=== PATIENT | female | born 1935 | race Caucasian/White ===

== ENCOUNTER → 2016-06-16 | Outpatient (CLI) | payer OTHER ==
[~2016-06-16] MED LIST: CHOL100010 PO; CHOL2000 PO; CLOP1TAB15 PO; CYAN100020 PO; CZR25 PO; FRS/40 PO; FURO80TA63 PO; GABA-112 PO; METO1TAB69 PO; METO50TA7 PO; SIMV20TA2 PO; SPRN100 PO; TPRSR/100 PO; XRL15 PO
[2016-06-16 10:28] LABS: BLOOD UREA NITROGEN 25 mg/dl (7-18); BUN/CREATININE RATIO 20.6 (10-20); CALCIUM 9.8 mg/dl (8.5-10.1); CARBON DIOXIDE 27 mmol/L (21-32); CHLORIDE 105 mmol/L (98-107); GLUCOSE 85 mg/dl (70-99); POTASSIUM 3.9 mmol/L (3.5-5.1); SODIUM 142 mmol/L (136-145)
== END | disposition home or self-care (01) ==
LOC: C.LAB1850 09:15
PROVIDERS: ATTEND Internal Medicine Cardiovascular Disease
DX: I50.9 Heart failure, unspecified (principal)

== ENCOUNTER → 2016-11-09 | Outpatient (CLI) | payer OTHER ==
[2016-11-09 15:43] LABS: BASO % 0.9 %; BASO ABS # 0.06 K/uL (0-0.2); COMPLETE YES; EOS % 1.4 %; HEMATOCRIT 42.2 % (37-47); IG% 0.2 %; LYMPH % 26.3 %; LYMPH ABS # 1.72 K/uL (1.2-3.4); MEAN CELL VOLUME 88.5 fL (80-100); MEAN CORPUSCULAR HEMOGLOBIN 27.9 pg (25-34); MEAN CORPUSCULAR HGB CONC 31.5 g/dl (32-36); MEAN PLATELET VOLUME 9.6 fL (7.4-10.4); NEUT % 62.2 %; PLATELET COUNT 238 K/uL (130-400); RED BLOOD COUNT 4.77 M/uL (4.2-5.4); WHITE BLOOD COUNT 6.55 K/uL (4.8-10.8)
[2016-11-09 16:10] LABS: ALT/SGPT 21 U/L (12-78); BLOOD UREA NITROGEN 28 mg/dl (7-18); BUN/CREATININE RATIO 19.6 (10-20); CALCIUM 9.8 mg/dl (8.5-10.1); CARBON DIOXIDE 27 mmol/L (21-32); CHLORIDE 103 mmol/L (98-107); GLUCOSE 87 mg/dl (70-99); MAGNESIUM 2.4 mg/dl (1.8-2.4); POTASSIUM 3.9 mmol/L (3.5-5.1); SODIUM 140 mmol/L (136-145)
[2016-11-09 16:21] LABS: ALB/GLOB RATIO 1.2 (0.9-2); ALKALINE PHOSPHATASE 72 U/L (45-117); AST/SGOT 22 U/L (15-37); FERRITIN 83.4 ng/ml (8.0-388.0)
--- NOTE | 2016-11-23 08:55 | CODING QUERY MEDICAL NECESSITY ---
CQSUPPORTING DIAGNOSIS NEEDED A supporting diagnosis is required for the test/procedure performed on this patient in order for us to be reimbursed by the patient's insurance. Please provide a supporting diagnosis for the following test/procedure listed below next to the test name along with your signature. *If there is no additional diagnosis for this patient that would support the following test/procedure please document that below next to the test/procedure. Test(s)/Procedure(s) that require a supporting diagnosis: DOS 11/09/16 VITAMIN B12 TEST Provider Signature: Date: Thank you Mariaa Haq Health Information Management Once completed, please kindly fax back to [phone] For questions please call [phone]
== END | disposition home or self-care (01) ==
LOC: C.LAB1850 14:52
PROVIDERS: ATTEND Nurse Practitioner Family
DX: I25.10 Atherosclerotic heart disease of native coronary artery without angina pectoris (principal); I12.9 Hypertensive chronic kidney disease with stage 1 through stage 4 chronic kidney disease, or unspecified chronic kidney disease; I50.9 Heart failure, unspecified; N18.9 Chronic kidney disease, unspecified; R53.83 Other fatigue

== ENCOUNTER 2016-12-15 14:39 | Inpatient (IN) | payer OTHER ==
[~2016-12-15] VITALS: Ht 165.1 cm; Wt 56.4 kg
[~2016-12-15 14:39] MED LIST changes: -CHOL2000 PO; -CLOP1TAB15 PO; -CZR25 PO; -FURO80TA63 PO; -GABA-112 PO; -METO1TAB69 PO; -METO50TA7 PO; -TPRSR/100 PO
[2016-12-15] MEDS ORDERED: METO50TA7 PO (15:05)
[2016-12-15] MEDS ORDERED: GABA-112 PO (15:28)
[2016-12-15] MEDS ORDERED: CLOP1TAB15 PO (15:28)
[2016-12-15] MEDS ORDERED: CZR25 PO (15:28)
[2016-12-15] MEDS ORDERED: CHOL2000 PO (15:28)
--- NOTE | 2016-12-15 15:35 | EMERGENCY ROOM VISIT NOTE ---
History Report prepared by Oleksandribe: Damaris Doll Under the Supervision of: Dr. Marino Issa M.D. First contact with patient: 15:13 Chief Complaint: ABDOMINAL PAIN Stated Complaint: STOMACH PAIN,SWOLLEN FEET,PINCHING FEELING IN HEAR History of Present Illness The patient is a 81 year old female who presents to the Emergency Room with complaints of worsening abdominal pain for the past 6 days. She is accompanied by her granddaughter, who is translating for her as she primarily speaks [place]. The patient describes feeling like something is "stuck" in her throat. She also complains of a "pinching" type pain in her chest. The patient does not take daily blood thinners. Her appetite has been decreased over the past few days. Her granddaughter reports the patient experienced both nausea and vomiting earlier in the week, as well as pain in the area of her kidneys, but these symptoms have resolved. The patient's bilateral legs and feet have also been increasingly swollen over the past few days. 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 A total of ten systems were reviewed and were otherwise negative. Past Medical & Surgical Medical Problems: (1) Acute on chronic systolic (congestive) heart failure (2) LOLA (acute kidney injury) (3) Cardiomyopathy (4) CHF (congestive heart failure) (5) Elevated LFTs (6) Intercostal neuralgia (7) Kidney stone (8) Shortness of breath Surgical Problems: (1) Hx of cholecystectomy Family History No pertinent family history Social History Smoking Status: Never Smoker Alcohol Use: none Drug Use: none Marital Status: Housing Status: lives with significant other Occupation Status: retired Current/Historical Medications Scheduled Cholecalciferol (Vitamin D3), 1 CAP PO DAILY Clopidogrel (Plavix), 75 MG PO DAILY Cyanocobalamin (Vitamin B12), 1 TAB PO QAM Furosemide (Lasix), 40 MG PO DAILY Metoprolol Succ (Toprol Xl) (Toprol-Xl), 1.5 TAB PO QAM Simvastatin (Zocor), 20 MG PO QPM Spironolactone (Spironolactone), 100 MG PO QAM Allergies Coded Allergies: NERIS Inhibitors (Verified Adverse Reaction, Mild, INTOLERANT, 03/01/16) Physical Exam Vital Signs Date Time Temp Pulse Resp B/P (MAP) Pulse Ox O2 Delivery O2 Flow Rate FiO2 12/15/16 19:35 95/80 12/15/16 19:30 106 23 97 12/15/16 19:08 124 12/15/16 19:00 94/66 12/15/16 18:30 91 16 91/67 97 12/15/16 18:27 96 20 91/67 95 12/15/16 16:27 96 Room Air 12/15/16 16:25 93 20 95/69 96 Room Air 12/15/16 15:28 99 Room Air 12/15/16 15:09 108 12/15/16 14:47 36.7 101 20 82/63 99 Room Air Physical Exam GENERAL: Awake, alert, uncomfortable-appearing, in no distress HENT: Normocephalic, atraumatic. Oropharynx unremarkable. Dry mucous membranes. EYES: Normal conjunctiva. Sclera non-icteric. NECK: Supple. No nuchal rigidity. FROM. No JVD. RESPIRATORY: Lung sounds are diminished at the bases but otherwise clear. CARDIAC: Regular rate, normal rhythm. Extremities warm and well perfused. Pulses equal. ABDOMEN: Soft, non-distended. Mild epigastric discomfort. No peritoneal signs. No rebound or guarding. No masses. RECTAL: Deferred. MUSCULOSKELETAL: Chest examination reveals no tenderness. The back is symmetrical on inspection without obvious abnormality. There is no CVA tenderness to palpation. No joint edema. LOWER EXTREMITIES: Pulses equal in all extremities. Calves are equal size bilaterally and non-tender. 2+ edema in lower extremities. No discoloration. NEURO: Normal sensorium. No sensory or motor deficits noted. SKIN: No rash or jaundice noted. Medical Decision & Procedures ER Provider Diagnostic Interpretation: Radiology results as stated below per my review and radiologist interpretation: CHEST ONE VIEW PORTABLE CLINICAL HISTORY: Atypical chest pain. Stomach pain. COMPARISON STUDY: 03/01/2016 FINDINGS: The heart is enlarged. There is mild central pulmonary vascular congestion. There is no lobar consolidation. There is a left subclavian pacer/defibrillator present. No free intraperitoneal air is visualized. No pleural effusions are visualized. IMPRESSION: 1. Cardiomegaly with mild central pulmonary vascular congestion 2. No evidence of focal pulmonary consolidation 3. No evidence of free intraperitoneal air Electronically signed by: Jorge L Laguna M.D. 12/15/2016 3:43 PM CHEST CTA for AORTIC DISSECTION CT DOSE: HISTORY: Atypical chest pain TECHNIQUE: Multiaxial CT images of the chest were performed both before and after the intravenous administration of contrast to evaluate the aorta. Maximal intensity projection images were also obtained. A dose lowering technique was utilized adhering to the principles of ALARA. COMPARISON STUDY: Chest 12/15/2016. Chest CT 12/22/2015. Chest CT 07/11/2009. FINDINGS: Normal caliber thoracic aorta. No filling defects within the central pulmonary arteries. Large low density filling defect originating at the base of the subclavian artery/distal aortic arch and extending along the distal arch/descending thoracic aorta posteriorly. This has the appearance of noncalcified plaque. However, this was not present on a 2009 examination. This measures up to 2 cm in thickness and results in approximately 30-40% narrowing of the distal aortic arch. This measures 8.6 cm in length. This does not appear to extend beyond the wall and therefore favors noncalcified thrombus. However, an old injury or hematoma/old dissection could also have a similar appearance. Heterogeneous contrast opacification within the anterior aspect of the distal aortic arch which favors mixing of blood and contrast from the possibility of turbulent flow. The heart is moderately enlarged. Pacemaker wires are present. No pleural effusions. No pneumothorax. No fractures within the visualized osseous structures. No mediastinal or hilar lymphadenopathy. No pneumothorax. Bibasal linear densities consistent with subsegmental atelectasis. Stable 4 mm benign nodule within the periphery of the left lower lobe. IMPRESSION: 1. There is a large low density filling defect seen at the base of the subclavian artery/distal aortic arch and extending along the distal arch/descending thoracic aorta posteriorly. This measures 2 cm in thickness and 8.6 cm in length. The appearance favors noncalcified atherosclerotic plaque. An old intramural hematoma/old dissection could also have a similar appearance but is considered less likely. This is unlikely to represent a vascular tumor as there is no evidence for extension beyond the aortic wall. However, consider short-term chest CT follow-up to ensure stability or if the patient's condition continues to deteriorate. Of note, this was not present on the 2010 examination. This results in approximately 30-40% narrowing of the distal aortic arch. 2. Heterogeneous contrast opacification within the anterior aspect of the distal aortic arch which favors mixing of blood and contrast from the possibility of turbulent flow due to the adjacent large amount of atherosclerotic plaque. 3. Cardiomegaly, unchanged. Electronically signed by: Bear Alvarenga M.D. 12/15/2016 5:46 PM ANGIO ABD/PELVIS WITH CONTRAST CLINICAL HISTORY: chest/abd pain - r/o dissection TECHNIQUE: Transaxial acquisition with multi axial reformatted images. COMPARISON STUDY: None FINDINGS: Following the fact of the aortic arch and proximal descending aorta is again noted. This is described in the patient's CT angiogram of the chest report. Moderate atherosclerotic change of the abdominal aorta as well as iliac vasculature. 50 cc 60% narrowing origin of the celiac axis. No significant mesenteric arterial occlusion. Origins. Mesenteric artery shows mild atherosclerotic change with no significant stenotic process. No evidence for true aneurysm or dissection. Several note is made of a 3 cm left renal cyst. 3.2 cm left ovarian cyst abnormal for age. Small moderate free fluid within the pelvic cul-de-sac. Bladder is midline. Bowel pattern is nonobstructive. IMPRESSION: 1. Abnormal thoracic aorta which has been described previous study. 2. Atherosclerotic change of the abdominal and pelvic arterial vasculature with no evidence for aneurysm or dissection. 3. 3 cm left renal cyst. 4. 3.2 cm left ovarian cystic lesion considered abnormal for age. Pelvic ultrasonography as follow-up is suggested. Moderate amount free fluid within the pelvic cul-de-sac. 5. Degenerative change thoracolumbar spine as well as bony pelvis. The above report was generated using voice recognition software. It may contain grammatical, syntax or spelling errors. Electronically signed by: Babar Rosen M.D. 12/15/2016 5:48 PM Radiology results as stated below per my review and interpretation: Bedside US: The patient has an EF of 15%, which is consistent with her baseline. IVC is plethoric with minimal variability. However no significant B- lines are seen on lung ultrasound. Laboratory Results 12/15/16 15:20 Red Blood Count 4.91, Mean Corpuscular Volume 87.0, Mean Corpuscular Hemoglobin 27.9, Mean Corpuscular Hemoglobin Concent 32.1, Mean Platelet Volume 10.4, Neutrophils (%) (Auto) 66.7, Lymphocytes (%) (Auto) 22.4, Monocytes (%) (Auto) 10.1, Eosinophils (%) (Auto) 0.3, Basophils (%) (Auto) 0.4, Neutrophils # (Auto ) 5.18, Lymphocytes # (Auto) 1.74, Monocytes # (Auto) 0.78, Eosinophils # (Auto ) 0.02, Basophils # (Auto) 0.03 12/15/16 15:20 Test 12/15/16 15:20 12/15/16 15:22 12/15/16 15:45 White Blood Count 7.76 K/uL (4.8-10.8) Red Blood Count 4.91 M/uL (4.2-5.4) Hemoglobin 13.7 g/dL (12.0-16.0) Hematocrit 42.7 % (37-47) Mean Corpuscular Volume 87.0 fL (80-100) Mean Corpuscular Hemoglobin 27.9 pg (25-34) Mean Corpuscular Hemoglobin Concent 32.1 g/dl (32-36) Platelet Count 219 K/uL (130-400) Mean Platelet Volume 10.4 fL (7.4-10.4) Neutrophils (%) (Auto) 66.7 % Lymphocytes (%) (Auto) 22.4 % Monocytes (%) (Auto) 10.1 % Eosinophils (%) (Auto) 0.3 % Basophils (%) (Auto) 0.4 % Neutrophils # (Auto) 5.18 K/uL (1.4-6.5) Lymphocytes # (Auto) 1.74 K/uL (1.2-3.4) Monocytes # (Auto) 0.78 K/uL (0.11-0.59) Eosinophils # (Auto) 0.02 K/uL (0-0.5) Basophils # (Auto) 0.03 K/uL (0-0.2) RDW Standard Deviation 47.6 fL (36.4-46.3) RDW Coefficient of Variation 15.1 % (11.5-14.5) Immature Granulocyte % (Auto) 0.1 % Immature Granulocyte # (Auto) 0.01 K/uL (0.00-0.02) Anion Gap 12.0 mmol/L (3-11) Estimated GFR () 24.8 Estimated GFR (Non- 21.4 BUN/Creatinine Ratio 24.0 (10-20) Calcium Level 9.4 mg/dl (8.5-10.1) Total Bilirubin 1.4 mg/dl (0.2-1) Direct Bilirubin 0.5 mg/dl (0-0.2) Aspartate Amino Transf (AST/SGOT) 171 U/L (15-37) Alanine Aminotransferase (ALT/SGPT) 185 U/L (12-78) Alkaline Phosphatase 119 U/L (45-117) Troponin I 0.070 ng/ml (0-0.045) Pro-B-Type Natriuretic Peptide > 23241 pg/ml (0-1800) Total Protein 6.6 gm/dl (6.4-8.2) Albumin 3.8 gm/dl (3.4-5.0) Lipase 155 U/L (73-393) Bedside Troponin I 0.050 ng/ml (0-0.045) Lactic Acid Level 2.5 mmol/L (0.4-2.0) Laboratory results reviewed by me Medications Administered Medications (Trade) Dose Ordered Sig/Phoebe Route Start Time Stop Time Status Last Admin Dose Admin Sodium Chloride 250 ml @ 100 mls/hr Q2H30M STAT IV 12/15/16 17:58 12/15/16 20:27 DC 12/15/16 18:26 100 MLS/HR Aspirin (Aspirin Chew) 324 mg NOW STAT PO 12/15/16 18:25 12/15/16 18:27 DC 12/15/16 18:49 324 MG ECG Indication: abdominal pain Rate (beats per minute): 100 Rhythm: other (paced rhythm) Findings: no acute ischemic change, other (normal axis) Change: no significant change (No change from previous EKG on 03/01/16) ED Course 1519: The patient was evaluated in room A11. A complete history and physical exam was performed. 1630: Nursing informed me the patients lactic acid is 2.5 and she has an elevated Troponin. 1743: I discussed the patients case with Dr. Alvarenga, [facility] Radiology. We discussed the patients recent CT scans. There are no acute findings to suggest a dissection. In the thoracic aorta, there is a questionable filling defect, this could be from a broad differential including an old dissection, non- calcified plaque or an old thrombus. There are no signs of an acute event and the patient will likely need a follow up CT scan of the chest. 1758: NSS 250 ml @ 100 mls/hr IV. 180: I performed a bedside ultrasound on the patient. See procedure note for further details. I discussed my recommendation she remain in the hospital for further evaluation and management and she and her granddaughter verbalized complete understanding and agreement. 182: Aspirin 324 mg PO. 1841: I discussed the patients case with Dr. Hall, [facility] Hospitalist. The patient will be further evaluated. Medical Decision I reviewed the patient's past medical history, medications, and the nursing notes as described above. Etiologies such as ACS, CHF, gastritis, peptic ulcer, AAA, dissection, pneumonia and ischemic bowel were considered. A 1-year-old woman with a copy to past medical history of CHF with an EF of 15% on Lasix status post AICD presents emergency Department with 5 days of chest pain abdominal pain and shortness of breath per history of present illness. Arrival the patient appears uncomfortable but in no acute distress. She is afebrile. Blood pressure is soft in the systolics in the 90s. Patient mentating normally. On exam the patient has dry mucous membranes however mild JVD and 2+ bilateral lower extremity edema. EKG unchanged from prior. Troponin slightly elevated to 0.07 however likely demand in the setting of acute on chronic renal insufficiency with creatinine 2 up from 1.4 previously. BUN/creatinine is greater than 20 suggestive of prerenal component. Additionally lactate mildly elevated at 2.7 however also likely secondary to dehydration in the setting of severe CHF. Considering the patient's WBC is within normal limits and she is afebrile I am not concerned for an infectious process at this time. Because the patient was reporting severe burning chest and abdominal pain that radiated to her back was concerned for dissection in this vasculopathic patient. The patient's acutely impaired renal function my suspicion for dissection was high and in the setting of recent evidence that suggests that IV contrast may have no role kidney injury I believe the benefits of a dissection contrast study outweighed the risks. CT findings do not show any acute pathology although chronic vascular abnormalities were identified as described in the CT report including aortic narrowing that has a jono differential including noncalcified plaque versus chronic hematoma or dissection. Abdominal vasculature also with evidence of vessel narrowing and sclerosis but no overt occlusions. Patient reevaluated and feeling improved without any intervention. During the patient's clinically dry status in the setting of BUN/creatinine suggestive of prerenal etiology gentle IV fluid hydration of 250 mL at 100 mL per hour. I discussed with hospitalist who will admit the patient to the medicine service for further management. Medication Reconcilliation Current Medication List: was personally reviewed by me Blood Pressure Screening Patient's blood pressure: Low blood pressure Blood pressure disposition: Did not require urgent referral (Low BP is considered situational) Consults Time Called: 1829 Consulting Physician: Dr. Hall [facility] Hospitalist Returned Call: 1841 I discussed the patients case with Dr. Hall [facility] Hospitalist. The patient will be further evaluated. Impression Primary Impression: Substernal chest pain Additional Impressions: Abdominal pain Acute on chronic renal insufficiency Scribe Attestation The scribe's documentation has been prepared under my direction and personally reviewed by me in its entirety. I confirm that the note above accurately reflects all work, treatment, procedures, and medical decision making performed by me. Departure Information Dispostion Being Evaluated By Hospitalist Referrals Clive Zavala III, CRNP (PCP) Patient Instructions My [facility] Problem Qualifiers
--- NOTE | 2016-12-15 15:44 | DIAGNOSTIC IMAGING REPORT ---
CHEST ONE VIEW PORTABLE CLINICAL HISTORY: Atypical chest pain. Stomach pain. COMPARISON STUDY: 03/01/2016 FINDINGS: The heart is enlarged. There is mild central pulmonary vascular congestion. There is no lobar consolidation. There is a left subclavian pacer/defibrillator present. No free intraperitoneal air is visualized. No pleural effusions are visualized.[ IMPRESSION: 1. Cardiomegaly with mild central pulmonary vascular congestion 2. No evidence of focal pulmonary consolidation 3. No evidence of free intraperitoneal air Electronically signed by: Jorge L Laguna M.D. 12/15/2016 3:43 PM Dictated Date/Time: 12/15/2016 3:42 PM
[2016-12-15 15:52] LABS: ALT/SGPT 185 U/L (12-78); BLOOD UREA NITROGEN 50 mg/dl (7-18); CALCIUM 9.4 mg/dl (8.5-10.1); CARBON DIOXIDE 23 mmol/L (21-32); CHLORIDE 97 mmol/L (98-107); GLUCOSE 115 mg/dl (70-99); POTASSIUM 4.2 mmol/L (3.5-5.1); SODIUM 132 mmol/L (136-145)
[2016-12-15 15:57] LABS: BASO % 0.4 %; BASO ABS # 0.03 K/uL (0-0.2); COMPLETE YES; EOS % 0.3 %; HEMATOCRIT 42.7 % (37-47); IG% 0.1 %; LYMPH % 22.4 %; LYMPH ABS # 1.74 K/uL (1.2-3.4); MEAN CORPUSCULAR HEMOGLOBIN 27.9 pg (25-34); MEAN CORPUSCULAR HGB CONC 32.1 g/dl (32-36); MEAN PLATELET VOLUME 10.4 fL (7.4-10.4); MONO % 10.1 %; NEUT % 66.7 %; PLATELET COUNT 219 K/uL (130-400); RED BLOOD COUNT 4.91 M/uL (4.2-5.4); WHITE BLOOD COUNT 7.76 K/uL (4.8-10.8)
[2016-12-15 16:04] LABS: ALKALINE PHOSPHATASE 119 U/L (45-117); AST/SGOT 171 U/L (15-37)
[2016-12-15] MEDS ORDERED: OPTIRAY 320 IV PRN (17:00)
--- NOTE | 2016-12-15 17:47 | DIAGNOSTIC IMAGING REPORT ---
CHEST CTA for AORTIC DISSECTION CT DOSE: HISTORY: Atypical chest pain TECHNIQUE: Multiaxial CT images of the chest were performed both before and after the intravenous administration of contrast to evaluate the aorta. Maximal intensity projection images were also obtained. A dose lowering technique was utilized adhering to the principles of ALARA. COMPARISON STUDY: Chest 12/15/2016. Chest CT 12/22/2015. Chest CT 07/11/2009. FINDINGS: Normal caliber thoracic aorta. No filling defects within the central pulmonary arteries. Large low density filling defect originating at the base of the subclavian artery/distal aortic arch and extending along the distal arch/descending thoracic aorta posteriorly. This has the appearance of noncalcified plaque. However, this was not present on a 2010 examination. This measures up to 2 cm in thickness and results in approximately 30-40% narrowing of the distal aortic arch. This measures 8.6 cm in length. This does not appear to extend beyond the wall and therefore favors noncalcified thrombus. However, an old injury or hematoma/old dissection could also have a similar appearance. Heterogeneous contrast opacification within the anterior aspect of the distal aortic arch which favors mixing of blood and contrast from the possibility of turbulent flow. The heart is moderately enlarged. Pacemaker wires are present. No pleural effusions. No pneumothorax. No fractures within the visualized osseous structures. No mediastinal or hilar lymphadenopathy. No pneumothorax. Bibasal linear densities consistent with subsegmental atelectasis. Stable 4 mm benign nodule within the periphery of the left lower lobe. IMPRESSION: 1. There is a large low density filling defect seen at the base of the subclavian artery/distal aortic arch and extending along the distal arch/descending thoracic aorta posteriorly. This measures 2 cm in thickness and 8.6 cm in length. The appearance favors noncalcified atherosclerotic plaque. An old intramural hematoma/old dissection could also have a similar appearance but is considered less likely. This is unlikely to represent a vascular tumor as there is no evidence for extension beyond the aortic wall. However, consider short-term chest CT follow-up to ensure stability or if the patient's condition continues to deteriorate. Of note, this was not present on the 2009 examination. This results in approximately 30-40% narrowing of the distal aortic arch. 2. Heterogeneous contrast opacification within the anterior aspect of the distal aortic arch which favors mixing of blood and contrast from the possibility of turbulent flow due to the adjacent large amount of atherosclerotic plaque. 3. Cardiomegaly, unchanged. Electronically signed by: Bear Alvarenga M.D. 12/15/2016 5:46 PM Dictated Date/Time: 12/15/2016 5:28 PM
--- NOTE | 2016-12-15 17:49 | DIAGNOSTIC IMAGING REPORT ---
ANGIO ABD/PELVIS WITH CONTRAST CLINICAL HISTORY: chest/abd pain - r/o dissection TECHNIQUE: Transaxial acquisition with multi axial reformatted images. COMPARISON STUDY: None FINDINGS: Following the fact of the aortic arch and proximal descending aorta is again noted. This is described in the patient's CT angiogram of the chest report. Moderate atherosclerotic change of the abdominal aorta as well as iliac vasculature. 50 cc 60% narrowing origin of the celiac axis. No significant mesenteric arterial occlusion. Origins. Mesenteric artery shows mild atherosclerotic change with no significant stenotic process. No evidence for true aneurysm or dissection. Several note is made of a 3 cm left renal cyst. 3.2 cm left ovarian cyst abnormal for age. Small moderate free fluid within the pelvic cul-de-sac. Bladder is midline. Bowel pattern is nonobstructive. IMPRESSION: 1. Abnormal thoracic aorta which has been described previous study. 2. Atherosclerotic change of the abdominal and pelvic arterial vasculature with no evidence for aneurysm or dissection. 3. 3 cm left renal cyst. 4. 3.2 cm left ovarian cystic lesion considered abnormal for age. Pelvic ultrasonography as follow-up is suggested. Moderate amount free fluid within the pelvic cul-de-sac. 5. Degenerative change thoracolumbar spine as well as bony pelvis. The above report was generated using voice recognition software. It may contain grammatical, syntax or spelling errors. Electronically signed by: Babar Rosen M.D. 12/15/2016 5:48 PM Dictated Date/Time: 12/15/2016 5:42 PM
[2016-12-15] MEDS ORDERED: SODIUM CHLORIDE 0.9% 250ML 250 ML IV STA (17:58)
[2016-12-15] MEDS ORDERED: ASPIRIN 81 MG CHEW PO STA (18:25)
[2016-12-15] MEDS ORDERED: HEPARIN IV LOW DOSE NO BOLUS STA (19:50)
[2016-12-15] MEDS ORDERED: ONDANSETRON INJ 2 MG/ML 2 ML VIAL IV PRN (20:00)
--- NOTE | 2016-12-15 20:13 | History and Physical ---
History & Physical Date & Time of Service: Dec 15, 2016 at 19:59 Chief Complaint: Stomach Pain,Swollen Feet,Pinching Feeling In Hear Primary Care Physician: Clive Zavala III, CRNP History of Present Illness Source: patient, family Patient speaks fijian, granddaughter was hospital director This is an 81 yo f with multiple comorbidities which includes hx anteroseptal ND and NSTEMI in 2007, ischemic cardiomyopathy ( EF 15-50 % Mar 2016) requiring a biventricular ICD in 2006 and generator change in 2011, HLD, CKD and CVA in 2015 who presents to the ED with worsening bilat LE extremity swelling and abdominal pain. She notes that approx 2 weeks prior she had increasing stress at home. Soon after this she started to develop a vague abdominal "nagging" that is diffuse as well as worsening of her BL LE swelling. She notes that usually her normal dose of Lasix (40 mg daily) will resolve the swelling. She also states she has been having sharp chest pain in the left chest with deep breaths and resolve immediately after expiration. She denies any chest pain or trauma two weeks prior. She denies any presyncope, syncope or palpitations. She normally follows with Dr Patterson. Patient was evaluated in the ED and was found to have elevated LFT, LOLA, elevated BNP and troponin. As there was concern by the ED physician for dissection the patient underwent a CT with contrast and no dissection was noted but there was findings concerning for a potential thrombus at the base of the AOA. She received 250cc of NSS prior to the CT with contrast. Dr Arauz was contacted for consult and recommendations were to trial 80 mg of lasix IV bid. Past Medical/Surgical History 1. NSTEMI 2006 2. ICD placement 3. CVA 4. CKD III 5. HLD 6. H/o cholecystectomy 7. Chronic systolic CHF - EF 10% Family History No pertinent family history Social History Smoking Status: Never Smoker Smokeless Tobacco Use: No Alcohol Use: none Drug Use: none Marital Status: Housing status: lives with family Occupational Status: retired Immunizations History of Influenza Vaccine: No Influenza Vaccine Date: Jan 30, 2007 History of Tetanus Vaccine?: Unknown History of Pneumococcal: Yes Pneumococcal Date: September 06, 2007 History of Hepatitis B Vaccine: No Multi-Drug Resistant Organisms History of MDRO: No Allergies Coded Allergies: NERIS Inhibitors (Verified Adverse Reaction, Mild, INTOLERANT, 03/01/16) Home Medications Scheduled Cholecalciferol (Vitamin D3), 1 CAP PO DAILY Clopidogrel (Plavix), 75 MG PO DAILY Cyanocobalamin (Vitamin B12), 1 TAB PO QAM Furosemide (Lasix), 40 MG PO DAILY Metoprolol Succ (Toprol Xl) (Toprol-Xl), 1.5 TAB PO QAM Simvastatin (Zocor), 20 MG PO QPM Spironolactone (Spironolactone), 100 MG PO QAM Review of Systems Constitutional: No fever Eyes: No worsening of vision ENT: No hearing loss Respiratory: + shortness of breath, + dyspnea on exertion, + dyspnea at rest, No cough, No sputum, No wheezing, No hemoptysis Cardiovascular: + chest pain, No palpitations Abdomen: + pain, No nausea, No vomiting, No diarrhea, No constipation Musculoskeletal: No joint pain, No muscle pain Genitourinary - Female: No dysuria Neurologic: + weakness, + balance problems, No numbness/tingling Endocrine: + fatigue Hematologic / Lymphatic: No abnormal bleeding/bruising Integumentary: No rash Physical Exam Vital Signs Date Time Temp Pulse Resp B/P (MAP) Pulse Ox O2 Delivery O2 Flow Rate FiO2 12/15/16 19:08 124 12/15/16 18:27 96 20 91/67 95 12/15/16 16:27 96 Room Air 12/15/16 16:25 93 20 95/69 96 Room Air 12/15/16 15:28 99 Room Air 12/15/16 15:09 108 12/15/16 14:47 36.7 101 20 82/63 99 Room Air General Appearance: no apparent distress Head: normocephalic, atraumatic Eyes: normal inspection ENT: normal ENT inspection Neck: supple Respiratory/Chest: no respiratory distress, no accessory muscle use, + decreased breath sounds (bilat bases) Cardiovascular: regular rate, rhythm, normal peripheral pulses, + JVD Abdomen/GI: normal bowel sounds, non tender, soft, no organomegaly Back: normal inspection, no CVA tenderness Extremities/Musculoskelatal: normal inspection, no calf tenderness, + pedal edema (+ 4 bilat) Neurologic/Psych: alert, normal mood/affect, oriented x 3 Skin: normal color, warm/dry, no rash Lymphatic: no adenopathy Diagnostics Laboratory Results Results Past 24 Hours Test 12/15/16 15:20 12/15/16 15:22 12/15/16 15:45 Range/Units White Blood Count 7.76 4.8-10.8 K/uL Red Blood Count 4.91 4.2-5.4 M/uL Hemoglobin 13.7 12.0-16.0 g/dL Hematocrit 42.7 37-47 % Mean Corpuscular Volume 87.0 80-100 fL Mean Corpuscular Hemoglobin 27.9 25-34 pg Mean Corpuscular Hemoglobin Concent 32.1 32-36 g/dl Platelet Count 219 130-400 K/uL Mean Platelet Volume 10.4 7.4-10.4 fL Neutrophils (%) (Auto) 66.7 % Lymphocytes (%) (Auto) 22.4 % Monocytes (%) (Auto) 10.1 % Eosinophils (%) (Auto) 0.3 % Basophils (%) (Auto) 0.4 % Neutrophils # (Auto) 5.18 1.4-6.5 K/uL Lymphocytes # (Auto) 1.74 1.2-3.4 K/uL Monocytes # (Auto) 0.78 0.11-0.59 K/uL Eosinophils # (Auto) 0.02 0-0.5 K/uL Basophils # (Auto) 0.03 0-0.2 K/uL RDW Standard Deviation 47.6 36.4-46.3 fL RDW Coefficient of Variation 15.1 11.5-14.5 % Immature Granulocyte % (Auto) 0.1 % Immature Granulocyte # (Auto) 0.01 0.00-0.02 K/uL Sodium Level 132 136-145 mmol/L Potassium Level 4.2 3.5-5.1 mmol/L Chloride Level 97 98-107 mmol/L Carbon Dioxide Level 23 21-32 mmol/L Anion Gap 12.0 3-11 mmol/L Blood Urea Nitrogen 50 7-18 mg/dl Creatinine 2.10 0.60-1.20 mg/dl Estimated GFR () 24.8 Estimated GFR (Non- 21.4 BUN/Creatinine Ratio 24.0 10-20 Random Glucose 115 70-99 mg/dl Calcium Level 9.4 8.5-10.1 mg/dl Total Bilirubin 1.4 0.2-1 mg/dl Direct Bilirubin 0.5 0-0.2 mg/dl Aspartate Amino Transf (AST/SGOT) 171 15-37 U/L Alanine Aminotransferase (ALT/SGPT) 185 12-78 U/L Alkaline Phosphatase 119 45-117 U/L Troponin I 0.070 0-0.045 ng/ml Pro-B-Type Natriuretic Peptide > 31999 0-1800 pg/ml Total Protein 6.6 6.4-8.2 gm/dl Albumin 3.8 3.4-5.0 gm/dl Lipase 155 73-393 U/L Bedside Troponin I 0.050 0-0.045 ng/ml Lactic Acid Level 2.5 0.4-2.0 mmol/L Diagnostic Radiology ANGIO ABD/PELVIS WITH CONTRAST CLINICAL HISTORY: chest/abd pain - r/o dissection TECHNIQUE: Transaxial acquisition with multi axial reformatted images. COMPARISON STUDY: None FINDINGS: Following the fact of the aortic arch and proximal descending aorta is again noted. This is described in the patient's CT angiogram of the chest report. Moderate atherosclerotic change of the abdominal aorta as well as iliac vasculature. 50 cc 60% narrowing origin of the celiac axis. No significant mesenteric arterial occlusion. Origins. Mesenteric artery shows mild atherosclerotic change with no significant stenotic process. No evidence for true aneurysm or dissection. Several note is made of a 3 cm left renal cyst. 3.2 cm left ovarian cyst abnormal for age. Small moderate free fluid within the pelvic cul-de-sac. Bladder is midline. Bowel pattern is nonobstructive. IMPRESSION: 1. Abnormal thoracic aorta which has been described previous study. 2. Atherosclerotic change of the abdominal and pelvic arterial vasculature with no evidence for aneurysm or dissection. 3. 3 cm left renal cyst. 4. 3.2 cm left ovarian cystic lesion considered abnormal for age. Pelvic ultrasonography as follow-up is suggested. Moderate amount free fluid within the pelvic cul-de-sac. 5. Degenerative change thoracolumbar spine as well as bony pelvis. [~ rep ct add3]] CHEST CTA for AORTIC DISSECTION CT DOSE: HISTORY: Atypical chest pain TECHNIQUE: Multiaxial CT images of the chest were performed both before and after the intravenous administration of contrast to evaluate the aorta. Maximal intensity projection images were also obtained. A dose lowering technique was utilized adhering to the principles of ALARA. COMPARISON STUDY: Chest 12/15/2016. Chest CT 12/22/2015. Chest CT 07/11/2009. FINDINGS: Normal caliber thoracic aorta. No filling defects within the central pulmonary arteries. Large low density filling defect originating at the base of the subclavian artery/distal aortic arch and extending along the distal arch/descending thoracic aorta posteriorly. This has the appearance of noncalcified plaque. However, this was not present on a 2010 examination. This measures up to 2 cm in thickness and results in approximately 30-40% narrowing of the distal aortic arch. This measures 8.6 cm in length. This does not appear to extend beyond the wall and therefore favors noncalcified thrombus. However, an old injury or hematoma/old dissection could also have a similar appearance. Heterogeneous contrast opacification within the anterior aspect of the distal aortic arch which favors mixing of blood and contrast from the possibility of turbulent flow. The heart is moderately enlarged. Pacemaker wires are present. No pleural effusions. No pneumothorax. No fractures within the visualized osseous structures. No mediastinal or hilar lymphadenopathy. No pneumothorax. Bibasal linear densities consistent with subsegmental atelectasis. Stable 4 mm benign nodule within the periphery of the left lower lobe. IMPRESSION: 1. There is a large low density filling defect seen at the base of the subclavian artery/distal aortic arch and extending along the distal arch/descending thoracic aorta posteriorly. This measures 2 cm in thickness and 8.6 cm in length. The appearance favors noncalcified atherosclerotic plaque. An old intramural hematoma/old dissection could also have a similar appearance but is considered less likely. This is unlikely to represent a vascular tumor as there is no evidence for extension beyond the aortic wall. However, consider short-term chest CT follow-up to ensure stability or if the patient's condition continues to deteriorate. Of note, this was not present on the 2010 examination. This results in approximately 30-40% narrowing of the distal aortic arch. 2. Heterogeneous contrast opacification within the anterior aspect of the distal aortic arch which favors mixing of blood and contrast from the possibility of turbulent flow due to the adjacent large amount of atherosclerotic plaque. 3. Cardiomegaly, unchanged. CHEST ONE VIEW PORTABLE CLINICAL HISTORY: Atypical chest pain. Stomach pain. COMPARISON STUDY: 03/01/2016 FINDINGS: The heart is enlarged. There is mild central pulmonary vascular congestion. There is no lobar consolidation. There is a left subclavian pacer/defibrillator present. No free intraperitoneal air is visualized. No pleural effusions are visualized.[ IMPRESSION: 1. Cardiomegaly with mild central pulmonary vascular congestion 2. No evidence of focal pulmonary consolidation 3. No evidence of free intraperitoneal air EKG Ventricular-paced rhythm with occasional Premature ventricular complexes Biventricular pacemaker detected HR 100 Impression Assessment and Plan This is an 81 yo f that is here with acute on chronic systolic CHF and reflective findings ( elevated LFT, LOLA) that the patient has poor forward flow. There is question if this was secondary to a cardiac event vs progression of disease. There is concern with such poor forward flow and administration of IV contrast that there will be further worsening of her LOLA and limited benefit from the Lasix. In this case patient would benefit from Dobutamine. ICU was contacted and informed of patient in light of this. Acute on Chronic systolic CHF, ICD with EF 15-20% in 2016 - Tele admission - consult cardio - Lasix 80 mg bid IV, may require dobutamine - I&O and daily weight - trend troponin - echo in am - ekg in am - O2 per nursing protocol - continue spironolactone and Metoprolol - home dose of Lasix 40 mg has been held LOLA secondary to systolic CHF - Recheck Cr and trend Elevated LFT secondary to hepatic congestion in presence of CHF - will continue to trend Possible thrombus in AOA; questionable hematoma vs old dissection vs plaque - heparin low dose without bolus empirically - recommend a follow up CT however LOLA should resolve prior to this H/O CVA - continue plavix and simvastatin DVT Prophylaxis - heparin drip Resident Physician Supervision Note: I was present with Dr. Stephenson during the history and exam. I discussed the case with the resident and agree with the findings and plan as documented in the note. Any exceptions or clarifications are listed here: 81 y/o F systolic CHF, CVA , CKD 3 - primary complaint on arrival - abdominal pain and LE edema - initial labs reveal acute on chronic RF, elevated trop, elevated lactic Dissection study was done which is suspicious for an aortic thrombus OE AAO S1,2 R +M CTAB - no crackles heard NT, ND + 3+ edema P: Above lab abnormalities are likely attributable to CHF exacerbation. Due to CT findings we have consulted cardiology and placed pt on Heparin Lasix dose increase If her renal function worsens we would consider dobutamine Above discussed with pt - hospital director (LAMONTE), resident and ER attending Documented By: Hari Lim Level of Care Telemetry Resuscitation Status DO NOT RESUSCITATE VTE Prophylaxis VTE Risk Assessment Done? Y/N: Yes Risk Level: Moderate Given or contraindicated: Other Anticoagulation Social Service Consult None Apply Note Total Time: Critical Care 30 - 74 minutes Additional Copies To Clive Zavala III, CRNP
[2016-12-15] MEDS ORDERED: HEPARIN 25000 UNIT/500 ML D5W ONE (20:21)
[2016-12-15] MEDS: HEPARIN 25,000 UNIT/500ML D5W 500 ML IV PRN (20:57)
[2016-12-15 20:58] LABS: INR 1.3 (0.9-1.1); PROTHROMBIN TIME (PATIENT) 13.6 SECONDS (9.0-12.0)
[2016-12-15 21:30] VITALS: BP 95/67; PULSE 90; TEMP 36.4; O2SAT 93; Ht 165.1 cm; Wt 56.4 kg
[2016-12-15] MEDS ORDERED: PNEUMOCOCCAL ADMINISTRATION CHARGE ONE (23:00)
[2016-12-15] MEDS ORDERED: PNEUMOCOCCAL POLYSACCHARIDES 25 MCG/0.5 ML VIAL/SYR IM. ONE (23:00)
[2016-12-15 23:26] VITALS: BP 90/60; PULSE 86; TEMP 37.1; O2SAT 96
[2016-12-16] VITALS (9 sets, daily range): BP systolic 84–147; BP diastolic 52–88; PULSE 86–111; TEMP 36.4–36.8; O2SAT 90–96
[2016-12-16] MEDS: SIMVASTATIN 20 MG TAB PO SCH ×2 (00:04→21:05)
[2016-12-16] MEDS: FUROSEMIDE INJ 80 MG in SYRINGE 0 ML IV SCH ×3 (00:05→21:05)
[2016-12-16 03:11] LABS: BASO % 0.8 %; BASO ABS # 0.05 K/uL (0-0.2); COMPLETE YES; EOS % 0.9 %; HEMATOCRIT 40.8 % (37-47); IG% 0.2 %; LYMPH ABS # 2.26 K/uL (1.2-3.4); MEAN CELL VOLUME 85.9 fL (80-100); MEAN CORPUSCULAR HEMOGLOBIN 28.4 pg (25-34); MEAN CORPUSCULAR HGB CONC 33.1 g/dl (32-36); MONO % 12.7 %; NEUT % 51.4 %; PLATELET COUNT 183 K/uL (130-400); RED BLOOD COUNT 4.75 M/uL (4.2-5.4); WHITE BLOOD COUNT 6.64 K/uL (4.8-10.8)
[2016-12-16 03:24] LABS: PARTIAL THROMBOPLASTIN RATIO 1.7
[2016-12-16 03:28] LABS: BUN/CREATININE RATIO 23.6 (10-20); CALCIUM 9.7 mg/dl (8.5-10.1); POTASSIUM 4.2 mmol/L (3.5-5.1)
[2016-12-16 03:31] LABS: ALB/GLOB RATIO 1.2 (0.9-2)
[2016-12-16] MEDS ORDERED: HEPARIN IV BOLUS 2,000 UNIT in SYRINGE 0 ML IV ONE (04:00)
[2016-12-16] MEDS: HEPARIN 25,000 UNIT/500ML D5W 500 ML IV PRN ×3 (04:45→20:54)
--- NOTE | 2016-12-16 08:41 | Family Medicine Progress Note ---
Progress Note Date of Service Dec 16, 2016. Subjective Pt evaluation today including: conversation w/ patient, conversation w/ family , physical exam, chart review 81 yo F -Pt speaks Spanish, translation provided by daughter -Pt is anxious and at times tearful, stating that she is better and that she wants to go home. -Pt says that her bilateral lower extremity edema is better today on Lasix. -Pt c/o SOB, dyspnea with exertion. Pt has been getting up to use the restroom. -Pt reports dizziness, but denies syncope. -Pt denies chest pain -Pt does report RUQ abdominal pain. Objective Vital Signs Date Time Temp Pulse Resp B/P (MAP) Pulse Ox O2 Delivery O2 Flow Rate FiO2 12/16/16 07:14 36.4 94 18 113/75 (88) 94 Room Air 12/16/16 04:41 36.4 104 16 105/68 (80) 96 Room Air 12/16/16 04:00 Room Air 12/16/16 00:00 Room Air 12/15/16 23:26 37.1 86 16 90/60 (70) 96 Room Air 12/15/16 21:30 36.4 90 18 95/67 93 Room Air 12/15/16 20:54 36.7 95 18 97/70 93 12/15/16 20:30 95 18 97/70 93 Room Air 12/15/16 20:00 94/72 12/15/16 19:35 95/80 12/15/16 19:30 106 23 97 12/15/16 19:08 124 12/15/16 19:00 94/66 12/15/16 18:30 91 16 91/67 97 12/15/16 18:27 96 20 91/67 95 12/15/16 16:27 96 Room Air 12/15/16 16:25 93 20 95/69 96 Room Air 12/15/16 15:28 99 Room Air 12/15/16 15:09 108 12/15/16 14:47 36.7 101 20 82/63 99 Room Air Physical Exam General Appearance: WD/WN, + mild distress Neck: supple, + JVD Respiratory/Chest: chest non-tender, lungs clear, no respiratory distress, no accessory muscle use Cardiovascular: regular rate, rhythm Abdomen: + tenderness, + pertinent finding (RUQ tenderness, no rigidity or gaurding ) Extremities: + pedal edema, + swelling Neurologic/Psychiatric: alert, normal mood/affect, oriented x 3 Skin: normal color, warm/dry, no rash Laboratory Results 12/16/16 03:02 Red Blood Count 4.75, Mean Corpuscular Volume 85.9, Mean Corpuscular Hemoglobin 28.4, Mean Corpuscular Hemoglobin Concent 33.1, Mean Platelet Volume 10.0, Neutrophils (%) (Auto) 51.4, Lymphocytes (%) (Auto) 34.0, Monocytes (%) (Auto) 12.7, Eosinophils (%) (Auto) 0.9, Basophils (%) (Auto) 0.8, Neutrophils # (Auto ) 3.42, Lymphocytes # (Auto) 2.26, Monocytes # (Auto) 0.84, Eosinophils # (Auto ) 0.06, Basophils # (Auto) 0.05 12/16/16 03:02 Test 12/15/16 15:20 12/15/16 15:22 12/15/16 15:45 12/15/16 20:42 Direct Bilirubin 0.5 mg/dl (0-0.2) Pro-B-Type Natriuretic Peptide > 18152 pg/ml (0-1800) Lipase 155 U/L (73-393) Bedside Troponin I 0.050 ng/ml (0-0.045) Lactic Acid Level 2.5 mmol/L (0.4-2.0) Prothrombin Time 13.6 SECONDS (9.0-12.0) Prothromb Time International Ratio 1.3 (0.9-1.1) Test 12/16/16 03:02 12/16/16 08:00 White Blood Count 6.64 K/uL (4.8-10.8) Red Blood Count 4.75 M/uL (4.2-5.4) Hemoglobin 13.5 g/dL (12.0-16.0) Hematocrit 40.8 % (37-47) Mean Corpuscular Volume 85.9 fL (80-100) Mean Corpuscular Hemoglobin 28.4 pg (25-34) Mean Corpuscular Hemoglobin Concent 33.1 g/dl (32-36) Platelet Count 183 K/uL (130-400) Mean Platelet Volume 10.0 fL (7.4-10.4) Neutrophils (%) (Auto) 51.4 % Lymphocytes (%) (Auto) 34.0 % Monocytes (%) (Auto) 12.7 % Eosinophils (%) (Auto) 0.9 % Basophils (%) (Auto) 0.8 % Neutrophils # (Auto) 3.42 K/uL (1.4-6.5) Lymphocytes # (Auto) 2.26 K/uL (1.2-3.4) Monocytes # (Auto) 0.84 K/uL (0.11-0.59) Eosinophils # (Auto) 0.06 K/uL (0-0.5) Basophils # (Auto) 0.05 K/uL (0-0.2) RDW Standard Deviation 47.9 fL (36.4-46.3) RDW Coefficient of Variation 15.4 % (11.5-14.5) Immature Granulocyte % (Auto) 0.2 % Immature Granulocyte # (Auto) 0.01 K/uL (0.00-0.02) Activated Partial Thromboplast Time 43.2 SECONDS (21.0-31.0) Partial Thromboplastin Ratio 1.7 Anion Gap 8.0 mmol/L (3-11) Est Creatinine Clear Calc Drug Dose 19.5 ml/min Estimated GFR () 26.3 Estimated GFR (Non- 22.7 BUN/Creatinine Ratio 23.6 (10-20) Calcium Level 9.7 mg/dl (8.5-10.1) Total Bilirubin 1.4 mg/dl (0.2-1) Aspartate Amino Transf (AST/SGOT) 147 U/L (15-37) Alanine Aminotransferase (ALT/SGPT) 177 U/L (12-78) Alkaline Phosphatase 110 U/L (45-117) Total Protein 5.8 gm/dl (6.4-8.2) Albumin 3.2 gm/dl (3.4-5.0) Globulin 2.6 gm/dl (2.5-4.0) Albumin/Globulin Ratio 1.2 (0.9-2) Assessment and Plan 81 yo f PMHx significant for CHF EF 15-20% presents to [facility] with bilateral LE edema, SOB and Chest pain Acute on Chronic systolic CHF, ICD with EF 15-20% in 2016 -Continue IV Lasix 80mg BID -Negative troponin x3 -Following cardio recommendation Ventricular tachycardia -Continue 75mg Toprol BID LOLA secondary to systolic CHF -Cr 2 today, follow up CMP tomorrow am Elevated LFT secondary to hepatic congestion in presence of CHF -Trend CMP tomorrow am H/O CVA -continue Plavix and Simvastatin DVT Prophylaxis -Subcutaneous heparin 5,000 BID Resident Physician Supervision Note: I was present with Dr. Sifuentes during the history and exam. I discussed the case with the resident and agree with the findings and plan as documented in the note. Any exceptions or clarifications are listed here: The patient examined this morning, she appears in no acute distress. There is no evidence of shortness of breath - she is able to speak in full sentences although it is in her [place] language, and while I cannot understand what she is saying in absence of an freight car inspector, she does not seem to have any conversational dyspnea. With the resident physician saw the patient earlier this morning, she was able to clinically with the patient with the help of an freight car inspector. PLAN #1 continue intravenous Lasix diuresis #2 echocardiogram is pending #3 cardiology input appreciated #4 discontinue heparin drip and start subcutaneous heparin for DVT prophylaxis. #5 CBC and CMP in AM #6 chest x-ray in AM Documented By: Mario Rosen
[2016-12-16] MEDS: CYANOCOBALAMIN 500 MCG TAB (VIT B-12) PO SCH (08:43)
[2016-12-16] MEDS: SPIRONOLACTONE 100 MG TAB PO SCH (08:43)
[2016-12-16] MEDS: CLOPIDOGREL BISULFATE 75 MG TAB PO SCH (08:43)
[2016-12-16] MEDS: CHOLECALCIFEROL 1000 INTER.UNIT TAB PO SCH (08:44)
[2016-12-16] MEDS ORDERED: METOPROLOL SUCC 25MG EXT REL TAB PO SCH (09:00)
[2016-12-16 10:02] LABS: MAGNESIUM 2.4 mg/dl (1.8-2.4); PARTIAL THROMBOPLASTIN RATIO 3.1
--- NOTE | 2016-12-16 10:14 | CARDIOLOGY CONSULTATION REPORT ---
DATE OF CONSULTATION: 12/16/2016 DATE OF CONSULTATION: 12/16/2016 REASON FOR CONSULTATION: Decompensated systolic CHF. HISTORY OF PRESENT ILLNESS: Mrs. Santos is an 81-year-old [place] female who speaks very little Korean. Most of her history was collected from her granddaughter Jonna today who translated over the phone for us. The patient is currently being seen in room 229 bed 2. The patient has a history of a long-standing Ischemic Cardiomyopathy s/p Bi-V ACID 2006 with generator change 2011 (LiveBidis model), history of CAD s/p NSTEMI 2007, Chronic LBBB, Hypertension, Mitral Regurgitation, Dyslipidemia, CVA, and CKD who presented acutely to [facility] on 12/15/2016 complaining of progressive lower extremity edema, abdominal pain, progressive shortness of breath, and some pleuritic chest pain. She had evidence of overt CHF on admission including pulmonary edema on chest x-ray, and a proBNP greater than 35,000 pg/mL. the patient was admitted for further evaluation and treatment. She has been receiving IV Lasix 80 mg b.i.d. and has had a reasonable diuretic response (body weight is down 1.6 kg since admission) -- and her symptoms have improved. Breathing was mildly labored overnight, but is much better today. She denies any chest pain. Lower extremity edema has improved dramatically as well. The patient offers no other complaints other than the pain at the site of her secondary IV in her left forearm. MEDICATIONS: 1. Plavix 75 mg daily. 2. Toprol XL 75 mg q.a.m. 3. Spironolactone 100 mg daily. 4. Vitamin D 2000 IU daily. 5. Vitamin B12 1000 mcg daily. 6. Lasix 80 mg IV b.i.d. 7. Zocor 20 mg q.p.m. 8. Heparin drip. 9. Zofran 4 mg IV q. 6 hours p.r.n. ALLERGIES: NERIS INHIBITORS. PAST MEDICAL HISTORY: 1. Long-standing ischemic cardiomyopathy with LVEF of 15-20% status post biventricular AICD placement 2006. 2. History of ACID generator change 2011. 3. CAD status post NSTEMI 2007. 4. Chronic LBBB. 5. Hypertension. 6. Chronic kidney disease. 7. Mitral regurgitation. 8. Dyslipidemia. 9. History of CVA. 10. History of osteoarthritis. 11. History of middle cerebral artery aneurysm. 12. History of UTIs. 13. Status post cholecystectomy. 14. Echocardiogram 03/02/2016 showed an LVEF of 15-20% with a moderately dilated LV. Normal left ventricular wall thickness. No evidence of thrombus. Severely dilated left atrium, mildly dilated right atrium. Moderate to severe MR, moderate TR, trace PI. SOCIAL HISTORY: The patient is originally from [place]. Lives with family in [place], [place]. Speaks very little Korean. Does not use alcohol or tobacco. FAMILY HISTORY: Noncontributory. PHYSICAL EXAMINATION: VITAL SIGNS: Temperature 37.3?C, pulse 95 and regular, respiratory rate is 16 and unlabored, blood pressure 108/70, SPO2 is 94% on room air. Uncertain about I and O's. As recorded body weight is down 1.6 pounds from admission. GENERAL: The patient is in no acute distress although she does appear anxious at times. HEAD, EYES, EARS, NOSE, AND THROAT: Head is atraumatic, normocephalic. EOM intact. Sclera anicteric. Faces symmetric. No perioral cyanosis. Mucous membranes moist. NECK: Without thyromegaly, adenopathy or JVD. Jugular venous pressure is mildly elevated, approximately 8-9 cm sitting upright. CHEST AND LUNGS: With diminished breath sounds in bilateral bases, otherwise clear. CARDIOVASCULAR SYSTEM: S1 and S2 are regular with a grade 1/6 apical holosystolic murmur. No diastolic murmurs appreciated. No gallops or rubs. PMI is laterally displaced. No lifts, heaves, or thrills. No abdominal, aortic or renal bruits. ABDOMINAL EXAMINATION: Bowel sounds present. No masses, organomegaly, or tenderness. EXTREMITIES: Are with +2 ankle edema bilaterally, +1 pitting edema of the distal pretibial surface. NEUROLOGIC EXAMINATION: Patient is awake, alert and interactive answers questions appropriately through her culinary chef. Normal movement bilateral upper and lower extremities. Gait pattern is not assessed. DERMATOLOGIC EXAMINATION: Reveals left forearm IV site with surrounding ecchymosis and tenderness. No erythema. Other IV access site appears to be within normal limits. Telemetry monitoring shows predominantly sinus rhythm with biventricular pacing, although she did have a run of ventricular tachycardia earlier today. LABORATORY DATA: White blood cell count is 6.64, hemoglobin 13.5 g/dL, hematocrit 40.8%, platelet count 183,000. Sodium is 138 mmol/L, potassium 4.2 mmol/L, BUN 47 mg/dL, creatinine 2.00 mg/dL. Random glucose 91 mg/dL. Serum magnesium level is pending. Total bilirubin is elevated at 1.4. ALT and AST are elevated as well, likely secondary to passive hepatic congestion. Initial troponin I 0.050. Follow-up laboratory troponin I 0.078 ng/mL. ProBNP on admission was greater than 35,000 pg/mL. ASSESSMENT: 1. Acute on chronic systolic CHF. 2. Ischemic Cardiomyopathy s/p Biventricular AICD. 3. Left ventricular ejection fraction 15% to 20%. 4. CAD s/p [id number] elevation myocardial infarction 2007. 5. Chronic kidney disease. 6. Hypertension. 7. Dyslipidemia. 8. Paroxysmal ventricular tachycardia. 9. Diagnoses as mentioned above. PLAN: 1. Discussed with Dr. Song who also met with, interviewed and examined the patient. 2. Recommend titrating Toprol XL to 75 mg b.i.d. in light of paroxysmal V-tach. 3. Continue IV Lasix 80 mg b.i.d. until she approaches euvolemic state or creatinine begins to rise -- at which time we will convert her back to oral Lasix. 4. Continue Spironolactone 100 mg daily. 5. Continue termite control servicer Zocor 20 mg daily. 6. Continue Plavix 75 mg daily. 7. Would not necessarily pursue further ischemic workup unless patient were to develop classic angina pectoris. 8. Consider switching from IV Heparin drip to subcutaneous heparin at DVT prophylaxis doses. 9. Continue to monitor daily I & O's, body weights. 10. Check serum magnesium level. If this was low, may have contributed to her episode of ventricular tachycardiac. 11. Will continue to follow along while hospitalized. [facility]
--- NOTE | 2016-12-16 12:06 | ECHOCARDIOGRAM REPORT ---
*NOTICE TO RECEIVING [employer] This information is strictly Confidential and protected under [place] law. [place] law prohibits you from making any further disclosure of this information unless further disclosure is expressly permitted by the written consent of the person to whom it pertains or is authorized by law. A general authorization for the release of medical or other information is not sufficient for this purpose. Hospital accepts no responsibility if the information is made available to any other person, INCLUDING THE PATIENT. Interpretation Summary * Name: DAVIDSON ESPANAICAREN Study Date: 12/16/2016 09:40 AM BP: 105/68 mmHg * Patient Location: C.2T\S\S229\S\2 HR: 94 * : 1935 (M/d/yy) Gender: Female Height: 64 in * Age: 81 yrs Ethnicity: CA Weight: 135 lb * Ordering Physician: Jess Stephenson * Referring Physician: Self, Referred * Performed By: Santiago Sierra RCS * * Reason For Study: chf * BSA: 1.7 m2 * -- Conclusions -- * 1. Severely dilated left ventricle with severely reduced systolic function. EF 15-20%. Akinesis of the inferior wall, mid to distal septum, mid anteroseptum, basal lateral, and basal inferolateral wall segments. Otherwise, global hypokinesis. No left ventricular hypertrophy. * 2. Moderately dilated right ventricle with severely reduced systolic function. * 3. Mild biatrial dilation. * 4. Mitral valve leaflets do not coapt during systole; restricted posterior leaflet. Severe mitral regurgitation. * 5. Mildly elevated right ventricular systolic pressure; estimated RVSP 40 mmHg. * 6. No significant change from prior study on 03/02/2016. Procedure Details * Left Ventricle Severely dilated left ventricle with severely reduced systolic function. Akinesis of the inferior wall, mid to distal septum, mid anteroseptum, basal lateral, and basal inferolateral wall segments. Otherwise, global hypokinesis. No left ventricular hypertrophy. Ejection Fraction = 15-20%. * Right Ventricle There is a pacemaker lead in the right ventricle. Moderately dilated right ventricle with severely reduced systolic function. The right ventricular systolic function is reduced as assessed by tricuspid annular plane systolic excursion (TAPSE) (TAPSE <1.6 cm). * Atria The left atrium is mildly dilated. The right atrium is mildly dilated. * Mitral Valve Mitral valve leaflets do not coapt during diastole; restricted posterior leaflet. Severe mitral regurgitation. There is no mitral valve stenosis. There is severe mitral regurgitation. * Tricuspid Valve The tricuspid valve is not well visualized, but is grossly normal. There is no tricuspid stenosis. There is mild tricuspid regurgitation. * Aortic Valve The aortic valve is trileaflet. Sclerotic aortic valve. No hemodynamically significant valvular aortic stenosis. There is no significant aortic regurgitation. * Pulmonic Valve The pulmonary valve is inadequately visualized, but the Doppler data is adequate for interpretation. There is no pulmonic valvular stenosis. There is no significant pulmonary regurgitation. * Great Vessels The aortic root is normal size. * Pericardium/Pleural There is no pericardial effusion. * Great Vessels Normal inferior vena cava size and collapsability with sniff indicates a normal right atrial pressure of 3 mmHg * * MMode 2D Measurements and Calculations * IVSd 0.89 cm * * LVIDd 7.1 cm * LVIDs 6.5 cm * LVPWd 0.81 cm * * IVS/LVPW 1.1 * FS 8.9 % * EDV(Teich) 266.6 ml * ESV(Teich) 216.0 ml * EF(Teich) 19.0 % * * EDV(cubed) 363.2 ml * ESV(cubed) 274.7 ml * EF(cubed) 24.4 % * * LV mass(C)d 272.1 grams * LV mass(C)dI 164.4 grams/m\S\2 * * SV(Teich) 50.6 ml * SI(Teich) 30.6 ml/m\S\2 * SV(cubed) 88.5 ml * SI(cubed) 53.5 ml/m\S\2 * * Ao root diam 2.9 cm * Ao root area 6.8 cm\S\2 * * LVOT diam 2.1 cm * LVOT area 3.3 cm\S\2 * * LVAd ap4 54.5 cm\S\2 * LVLd ap4 9.7 cm * EDV(MOD-sp4) 260.1 ml * EDV(sp4-el) 258.5 ml * LVAs ap4 46.1 cm\S\2 * LVLs ap4 8.7 cm * ESV(MOD-sp4) 200.5 ml * ESV(sp4-el) 208.1 ml * EF(MOD-sp4) 22.9 % * EF(sp4-el) 19.5 % * * LVAd ap2 58.2 cm\S\2 * LVLd ap2 9.7 cm * EDV(MOD-sp2) 299.4 ml * EDV(sp2-el) 297.7 ml * LVAs ap2 52.1 cm\S\2 * LVLs ap2 9.6 cm * ESV(MOD-sp2) 242.6 ml * ESV(sp2-el) 240.6 ml * EF(MOD-sp2) 19.0 % * EF(sp2-el) 19.2 % * * LVLd %diff -0.74 % * EDV(MOD-bp) 280.9 ml * LVLs %diff 9.2 % * ESV(MOD-bp) 222.4 ml * EF(MOD-bp) 20.8 % * * SV(MOD-sp4) 59.6 ml * SI(MOD-sp4) 36.0 ml/m\S\2 * * SV(MOD-sp2) 56.7 ml * SI(MOD-sp2) 34.3 ml/m\S\2 * * SV(MOD-bp) 58.5 ml * SI(MOD-bp) 35.3 ml/m\S\2 * * SV(sp4-el) 50.4 ml * SI(sp4-el) 30.5 ml/m\S\2 * * SV(sp2-el) 57.1 ml * SI(sp2-el) 34.5 ml/m\S\2 * * * Doppler Measurements and Calculations * MV E max michael 124.7 cm/sec * * MV dec time 0.14 sec * * Ao V2 max 96.6 cm/sec * Ao max PG 3.7 mmHg * Ao max PG (full) 3.3 mmHg * JUSTICE(V,A) 1.2 cm\S\2 * JUSTICE(V,D) 1.2 cm\S\2 * * LV V1 max PG 0.46 mmHg * * LV V1 max 34.0 cm/sec * * TR max michael 303.0 cm/sec * RVSP(TR) 39.7 mmHg * * RAP systole 3.0 mmHg * * *
[2016-12-16] MEDS ORDERED: ACETAMINOPHEN 325 MG TAB PO PRN (17:30)
[2016-12-16] MEDS ORDERED: HEPARIN IV LOW DOSE NO BOLUS SCH (20:07)
[2016-12-16] MEDS ORDERED: HEPARIN SOD 5000 UNIT/0.5 ML CARP SQ SCH (21:00)
[2016-12-16] MEDS: METOPROLOL SUCC 25MG EXT REL TAB PO SCH (21:00)
[2016-12-16 21:06] LABS: MEAN CELL VOLUME 87.1 fL (80-100); MEAN CORPUSCULAR HEMOGLOBIN 27.4 pg (25-34); PLATELET COUNT 189 K/uL (130-400); RED BLOOD COUNT 4.82 M/uL (4.2-5.4)
[2016-12-16 21:25] LABS: INR 1.3 (0.9-1.1); PROTHROMBIN TIME (PATIENT) 13.5 SECONDS (9.0-12.0)
[2016-12-16 21:38] LABS: MEAN CORPUSCULAR HGB CONC 31.4 g/dl (32-36)
[2016-12-17 02:03] LABS: URINE APPEARANCE CLEAR (CLEAR); URINE BILIRUBIN NEG (NEG); URINE COLOR YELLOW; URINE NITRITE NEG (NEG); URINE PH 7.5 (4.5-7.5); URINE SPECIFIC GRAVITY 1.013 (1.000-1.030); UROBILINOGEN NEG (NEG); ZZUR CULT IF INDIC CLEAN CATCH NO
[2016-12-17 02:07] LABS: MANUAL MICROSCOPIC REQUIRED? NO; REVIEW REQ? NO
[2016-12-17 03:32] VITALS: BP 90/60; PULSE 70; TEMP 36.1; O2SAT 94
[2016-12-17 03:42] LABS: HEMATOCRIT 40.4 % (37-47); MEAN CELL VOLUME 86.7 fL (80-100); MEAN CORPUSCULAR HEMOGLOBIN 28.1 pg (25-34); MEAN PLATELET VOLUME 9.9 fL (7.4-10.4); PLATELET COUNT 175 K/uL (130-400); RED BLOOD COUNT 4.66 M/uL (4.2-5.4); WHITE BLOOD COUNT 4.88 K/uL (4.8-10.8)
[2016-12-17 03:57] LABS: INR 1.2 (0.9-1.1); PARTIAL THROMBOPLASTIN RATIO 1.8; PROTHROMBIN TIME (PATIENT) 13.1 SECONDS (9.0-12.0)
[2016-12-17 04:00] VITALS: TEMP 36.5
[2016-12-17 04:00] LABS: BUN/CREATININE RATIO 25.1 (10-20); CALCIUM 9.3 mg/dl (8.5-10.1); CREATININE 1.7 mg/dl (0.60-1.20); POTASSIUM 3.3 mmol/L (3.5-5.1)
[2016-12-17 04:02] LABS: MEAN CORPUSCULAR HGB CONC 32.4 g/dl (32-36)
[2016-12-17 04:07] LABS: ALB/GLOB RATIO 1.2 (0.9-2)
[2016-12-17] MEDS ORDERED: NURSING VERBAL MED ORDER ONE (04:30)
[2016-12-17] MEDS: HEPARIN 25,000 UNIT/500ML D5W 500 ML IV PRN (05:13)
[2016-12-17] MEDS ORDERED: HEPARIN IV BOLUS 2,000 UNIT in SYRINGE 0 ML IV ONE (05:15)
[2016-12-17] MEDS ORDERED: POTASSIUM CHLORIDE 20 MEQ TABCR PO ONE (05:30)
--- NOTE | 2016-12-17 08:12 | Family Medicine Progress Note ---
Progress Note Date of Service Dec 17, 2016. Subjective Pt evaluation today including: conversation w/ patient, conversation w/ family , physical exam, chart review, lab review 81 F PMHX CHF, EF 15-20%, stroke, presented to [facility] with worsening edema and SOB -Pt cannot speak Hebrew. Daughter translated over the phone -Pt says that she is feeling better: no chest pain, no SOB, less edema. -Pt does report worsening of vision since this weekend. She reports visual changes with a previous stroke. -Pt reports that those deficits have gotten worse. She seems to have most trouble with peripheral vision and localizing people and objects on her left side. Constitutional: No fever, No chills Respiratory: No cough, No sputum Cardiovascular: No chest pain Abdomen: No nausea, No vomiting, No diarrhea Medications Current Inpatient Medications Medications (Trade) Dose Ordered Sig/Phoebe Route Start Time Stop Time Status Last Admin Dose Admin Ioversol (Optiray 320) 111 ml UD PRN IV 12/15/16 17:00 12/19/16 16:59 Ondansetron HCl (Zofran Inj) 4 mg Q6H PRN IV 12/15/16 20:00 01/14/17 19:59 Clopidogrel Bisulfate (plAVix TAB) 75 mg DAILY PO 12/16/16 09:00 01/15/17 08:59 12/17/16 08:40 75 MG Simvastatin (Zocor Tab) 20 mg QPM PO 12/15/16 21:00 01/14/17 20:59 12/16/16 21:05 20 MG Spironolactone (Aldactone Tab) 100 mg QAM PO 12/16/16 09:00 01/15/17 08:59 12/17/16 08:41 100 MG Cholecalciferol (Vitamin D Tab) 2,000 inter.unit DAILY PO 12/16/16 09:00 01/15/17 08:59 12/17/16 08:40 2,000 INTER.UNIT Cyanocobalamin (Vitamin B-12 Tab) 1,000 mcg QAM PO 12/16/16 09:00 01/15/17 08:59 12/17/16 08:40 1,000 MCG Furosemide 80 mg/ Syringe 8 ml @ 4 mls/min BID IV 12/15/16 22:00 01/14/17 21:59 12/17/16 08:40 4 MLS/MIN Metoprolol Succinate (Toprol Xl Tab) 75 mg BID PO 12/16/16 21:00 01/15/17 08:59 12/17/16 10:15 75 MG Acetaminophen (Tylenol Tab) 325 mg Q4H PRN PO 12/16/16 17:30 01/15/17 17:29 Heparin Sodium/ Dextrose 500 ml @ 15 mls/hr Q24H PRN IV 12/16/16 20:15 01/15/17 20:14 Future Hold 12/17/16 05:13 15 MLS/HR Objective Vital Signs Date Time Temp Pulse Resp B/P (MAP) Pulse Ox O2 Delivery O2 Flow Rate FiO2 12/17/16 04:00 36.5 12/17/16 04:00 Room Air 12/17/16 03:32 36.1 70 20 90/60 (70) 94 Room Air 12/16/16 23:59 Room Air 12/16/16 23:28 36.8 86 18 95/68 (77) 94 Room Air 12/16/16 20:00 Room Air 12/16/16 19:46 36.7 111 18 100/71 (81) 95 Room Air 12/16/16 17:10 92/60 (71) 12/16/16 16:00 Room Air 12/16/16 15:40 84/56 (65) 12/16/16 15:20 84/52 (63) 12/16/16 15:06 36.5 89 16 87/61 (70) 90 Room Air 12/16/16 12:00 Room Air 12/16/16 11:07 36.5 98 18 110/79 (89) 96 Room Air Physical Exam General Appearance: WD/WN, no apparent distress Respiratory/Chest: chest non-tender, lungs clear, normal breath sounds, no respiratory distress, no accessory muscle use Cardiovascular: regular rate, rhythm, no edema, no gallop Extremities: no calf tenderness, + swelling Neurologic/Psychiatric: vest backer II-XII nml as tested, no motor/sensory deficits, alert, normal mood/affect, oriented x 3, + pertinent finding (Compromised peripheral vision. Pt has trouble localizing objects and people from a distance of two feet, consistent with her visual field deficits. Pt is able to read numbers and letters on the dry erase board across from her bed (7 foot distance) . ) Skin: normal color, warm/dry, no rash Laboratory Results 12/17/16 03:18 12/17/16 03:18 Test 12/16/16 09:22 12/16/16 15:54 12/17/16 01:36 12/17/16 03:18 Magnesium Level 2.4 mg/dl (1.8-2.4) Troponin I 0.081 ng/ml (0-0.045) Urine Color YELLOW Urine Appearance CLEAR (CLEAR) Urine pH 7.5 (4.5-7.5) Urine Specific [place] 1.013 (1.000-1.030) Urine Protein NEG (NEG) Urine Glucose (UA) NEG (NEG) Urine Ketones NEG (NEG) Urine Occult Blood NEG (NEG) Urine Nitrite NEG (NEG) Urine Bilirubin NEG (NEG) Urine Urobilinogen NEG (NEG) Urine Leukocyte Esterase NEG (NEG) Red Blood Count 4.66 M/uL (4.2-5.4) Mean Corpuscular Volume 86.7 fL (80-100) Mean Corpuscular Hemoglobin 28.1 pg (25-34) Mean Corpuscular Hemoglobin Concent 32.4 g/dl (32-36) RDW Standard Deviation 48.2 fL (36.4-46.3) RDW Coefficient of Variation 15.5 % (11.5-14.5) Mean Platelet Volume 9.9 fL (7.4-10.4) Prothrombin Time 13.1 SECONDS (9.0-12.0) Prothromb Time International Ratio 1.2 (0.9-1.1) Activated Partial Thromboplast Time 46.5 SECONDS (21.0-31.0) Partial Thromboplastin Ratio 1.8 Anion Gap 10.0 mmol/L (3-11) Est Creatinine Clear Calc Drug Dose 23.0 ml/min Estimated GFR () 32.0 Estimated GFR (Non- 27.6 BUN/Creatinine Ratio 25.1 (10-20) Calcium Level 9.3 mg/dl (8.5-10.1) Total Bilirubin 1.6 mg/dl (0.2-1) Aspartate Amino Transf (AST/SGOT) 135 U/L (15-37) Alanine Aminotransferase (ALT/SGPT) 190 U/L (12-78) Alkaline Phosphatase 109 U/L (45-117) Total Protein 5.7 gm/dl (6.4-8.2) Albumin 3.1 gm/dl (3.4-5.0) Globulin 2.6 gm/dl (2.5-4.0) Albumin/Globulin Ratio 1.2 (0.9-2) Assessment and Plan 81 yo f PMHx significant for CHF EF 15-20% presents to [facility] with bilateral LE edema, SOB and Chest pain 12/15/16 -Pt has a PMHx of stroke with visual deficits. This morning pt is complaining that the deficits are getting worse. -Pt was also found to have possible aortic arch thrombus/plaque on Chest CT -Head CT w/o contrast ordered this am. Vision loss -CT in am was inconclusive due to recent contrast CT -Repeat CT at 1530pm demonstrated same result. -Repeat CT in 12-24 hours -Neuro consulted, appreciate recommendations -Cardio consulted, appreciate recommendations Acute on Chronic systolic CHF, ICD with EF 15-20% in 2016 -Continue IV Lasix 80mg BID -Negative troponin x3 -Following cardio recommendation Ventricular tachycardia -Continue 75mg Toprol BID LOLA secondary to systolic CHF -Cr 1.7 today, follow up CMP tomorrow am Elevated LFT secondary to hepatic congestion in presence of CHF -Trend CMP tomorrow am H/O CVA -continue Plavix and Simvastatin DVT Prophylaxis -Holding IV heparin at this time Resident Physician Supervision Note: I interviewed and examined the patient. Discussed with Dr. Garcia and agree with findings and plan as documented in the note. Any exceptions or clarifications are listed here: From a CHF standpoint, she continues to improve. Cardiology input appreciated. Neurology also saw the patient today given her history of prior CVA and questionable changes in her vision today. Fortunately, repeat CT scan today did not show development of any new intracranial findings. A follow-up CT scan was recommended in 12-24 hours and this will be completed tomorrow morning. In the meantime, we'll hold on DVT prophylaxis. Continue IV diuresis and monitor I's and O's. Documented By: Mario Rosen
[2016-12-17] MEDS: CLOPIDOGREL BISULFATE 75 MG TAB PO SCH (08:40)
[2016-12-17] MEDS: CYANOCOBALAMIN 500 MCG TAB (VIT B-12) PO SCH (08:40)
[2016-12-17] MEDS: CHOLECALCIFEROL 1000 INTER.UNIT TAB PO SCH (08:40)
[2016-12-17] MEDS: FUROSEMIDE INJ 80 MG in SYRINGE 0 ML IV SCH ×2 (08:40→20:50)
[2016-12-17] MEDS: SPIRONOLACTONE 100 MG TAB PO SCH (08:41)
--- NOTE | 2016-12-17 10:02 | DIAGNOSTIC IMAGING REPORT ---
HEAD CT NONCONTRAST CT DOSE: 638.56 mGycm HISTORY: visual changes TECHNIQUE: Multiaxial CT images of the head were performed without the use of intravenous contrast. Automated exposure control was utilized for this study. A dose lowering technique was utilized adhering to the principles of ALARA. Comparison: Head CT 03/03/2016. Findings: The paranasal sinuses and mastoid air cells are clear. The calvarium and skull base are intact. There is no mass or midline shift. Mild atrophic changes within the brain. Progressive areas of hypodensity within the bilateral occipital lobes consistent with old infarcts. Serpiginous areas of increased density along the cortex of the right occipital/temporal junction. This is new from the prior study. Impression: 1. Serpiginous areas of increased density along the cortex of the right occipital/temporal junction. This is new from the prior study. This favors retained/residual intravenous contrast due to abnormal perfusion in the setting of a subacute infarct at this location. This could also represent cortical laminar necrosis from an old infarct or possibly trace subarachnoid hemorrhage. [address] followed recommended to ensure stability. 2. Progression of the old bilateral occipital lobe infarcts. 3. These findings were discussed with Dr. Rosen at 10:00 AM on 12/17/2016. Electronically signed by: Bear Alvarenga M.D. 12/17/2016 10:01 AM Dictated Date/Time: 12/17/2016 9:50 AM
[2016-12-17] MEDS: METOPROLOL SUCC 25MG EXT REL TAB PO SCH ×2 (10:15→20:49)
[2016-12-17 10:20] VITALS: BP 99/70; PULSE 92; TEMP 36.4; O2SAT 97
[2016-12-17 11:04] LABS: PARTIAL THROMBOPLASTIN RATIO 2.1
--- NOTE | 2016-12-17 12:27 | Neurology Consultation ---
Neurology Consultation Date of Consultation: Dec 17, 2016. Attending Physician: Hari Lim M.D. Primary Care Physician: Clive Zavala III, CRNP Reason for Consultation: Vision changes History of Present Illness The patient is an 81 year old non-Kinyarwanda speaking Kosovan female who presented to the emergency department 2 days ago complaining of chest pain, abdominal pain , and shortness of breath for the past 5 days with some associated lower extremity swelling. 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 She has a past medical history of congestive heart failure with a very low ejection fraction and has a history of AICD placement, myocardial infarction, chronic kidney disease, and bilateral occipital lobe strokes. The patient was evaluated by Dr. Noriega during an admission to the hospital in January 2016 for vision loss due to an acute left occipital lobe stroke at that time. The chronic right occipital lobe infarct was also noted. She was considered a possible candidate for anticoagulation given her very low EF and evidence of bilateral occipital lobe strokes at that time. However, it appears as if antiplatelet therapy was considered a safer option for her. She has been taking Plavix, beta gabriella, and a statin prior to this recent hospitalization. According to the patient's daughter, who I spoke with over the phone, the patient has been complaining of some worsening vision recently. She has been noted to miss objects when attempting to handle or grab them. It also seems as if she no longer looks directly at you when speaking to her. She apparently has had some follow-up with ophthalmology, Dr. Green, since her last stroke and may have had visual field testing completed. However, it is difficult to determine what is actually different about her vision. Due to this patient's reported change in vision a CT of the head was obtained. Although the study was a noncontrast CT there was likely residual contrast related to the previous CT angiograms of the chest and abdomen. The study reveals a serpiginous area of increased density along the cortex of the right occipital/temporal junction that is adjacent to her previous right occipital lobe infarct. This finding may reflect abnormal perfusion due to a subacute infarct in this area or possibly cortical laminar necrosis related to her prior infarct. The previously identified bilateral occipital lobe infarcts have gone through expected evolutionary change on imaging. I reviewed both the images as well as the radiologist's interpretation of this test. Past Medical/Surgical History Medical Problems: (1) Abdominal pain Status: Acute (2) Acute on chronic renal insufficiency Status: Acute (3) CVA (cerebral vascular accident) Status: Acute (4) Decreased vision Status: Acute (5) Hypoxia Status: Acute (6) Right-sided chest pain Status: Acute (7) Substernal chest pain Status: Acute Family History Noncontributory given patient's advanced age Father: cancer Mother: no pertinent history Social History Smoking Status: Never smoker Smokeless Tobacco Use: No Alcohol Use: none Drug Use: none Marital Status: Housing Status: lives with significant other Occupation Status: retired Allergies Coded Allergies: NERIS Inhibitors (Verified Adverse Reaction, Mild, INTOLERANT, 03/01/16) Current Inpatient Medications Current Inpatient Medications Medications (Trade) Dose Ordered Sig/Phoebe Route Start Time Stop Time Status Last Admin Dose Admin Ioversol (Optiray 320) 111 ml UD PRN IV 12/15/16 17:00 12/19/16 16:59 Ondansetron HCl (Zofran Inj) 4 mg Q6H PRN IV 12/15/16 20:00 01/14/17 19:59 Clopidogrel Bisulfate (plAVix TAB) 75 mg DAILY PO 12/16/16 09:00 01/15/17 08:59 12/17/16 08:40 75 MG Simvastatin (Zocor Tab) 20 mg QPM PO 12/15/16 21:00 01/14/17 20:59 12/16/16 21:05 20 MG Spironolactone (Aldactone Tab) 100 mg QAM PO 12/16/16 09:00 01/15/17 08:59 12/17/16 08:41 100 MG Cholecalciferol (Vitamin D Tab) 2,000 inter.unit DAILY PO 12/16/16 09:00 01/15/17 08:59 12/17/16 08:40 2,000 INTER.UNIT Cyanocobalamin (Vitamin B-12 Tab) 1,000 mcg QAM PO 12/16/16 09:00 01/15/17 08:59 12/17/16 08:40 1,000 MCG Furosemide 80 mg/ Syringe 8 ml @ 4 mls/min BID IV 12/15/16 22:00 01/14/17 21:59 12/17/16 08:40 4 MLS/MIN Metoprolol Succinate (Toprol Xl Tab) 75 mg BID PO 12/16/16 21:00 01/15/17 08:59 12/17/16 10:15 75 MG Acetaminophen (Tylenol Tab) 325 mg Q4H PRN PO 12/16/16 17:30 01/15/17 17:29 Heparin Sodium/ Dextrose 500 ml @ 15 mls/hr Q24H PRN IV 12/16/16 20:15 01/15/17 20:14 Future Hold 12/17/16 05:13 15 MLS/HR Review of Systems Constitutional: No headache, fever, or chills Eyes: As per history of present illness ENT: No hearing loss Cardiovascular as per history of present illness Respiratory: As per history of present illness Gastrointestinal: As per history of present illness Neurological: As per history of present illness A full 10 point review of systems was obtained with pertinent positives listed in the history of present illness and otherwise listed above. All remaining systems reviewed and are negative. Physical Exam Vital Signs (Past 24 Hrs): Date Time Temp Pulse Resp B/P (MAP) Pulse Ox O2 Delivery O2 Flow Rate FiO2 12/17/16 10:20 36.4 92 20 99/70 (80) 97 Room Air 12/17/16 04:00 36.5 12/17/16 04:00 Room Air 12/17/16 03:32 36.1 70 20 90/60 (70) 94 Room Air 12/16/16 23:59 Room Air 12/16/16 23:28 36.8 86 18 95/68 (77) 94 Room Air 12/16/16 20:00 Room Air 12/16/16 19:46 36.7 111 18 100/71 (81) 95 Room Air 12/16/16 17:10 92/60 (71) 12/16/16 16:00 Room Air 12/16/16 15:40 84/56 (65) 12/16/16 15:20 84/52 (63) 12/16/16 15:06 36.5 89 16 87/61 (70) 90 Room Air 12/16/16 12:00 Room Air The patient is a well-developed, elderly female. She is lying comfortably in bed. She is alert and oriented to person and place. Attention normal. She exhibits a normal spontaneous speech pattern although speaks only Kosovan. Vocabulary normal. She does speak a few words of Kinyarwanda and indicates that she does not understand. I'm unable to reliably assess her visual perez due to the language barrier. Pupils equal round reactive to light and accommodation. Eye movements normal. There is no gaze preference. Facial sensation intact. There is normal facial symmetry and strength. No facial droop. Hearing intact bilaterally. Palate elevates to midline. Tongue protrudes to midline. Shoulder shrug strength intact. Sensation intact to light touch, temperature, vibration, and proprioception for all 4 limbs. Deep tendon reflexes are intact and symmetrical for the arms and legs. There is no dysdiadochokinesia or dysmetria on finger to nose or heel to reddy. I'm unable to adequately visualize the optic disks or posterior segments with ophthalmoscopic examination due to poor patient cooperation. Carotid pulses normal bilaterally, no bruits to auscultation. Gait and station not assessed due to safety concerns. Patient exhibits normal muscle strength and tone for all 4 limbs. No atrophy. No abnormal movements observed. Laboratory Results Past 24 Hours: 12/17/16 03:18 12/17/16 03:18 Test 12/16/16 15:54 12/17/16 01:36 12/17/16 03:18 12/17/16 10:34 Troponin I 0.081 ng/ml (0-0.045) Urine Color YELLOW Urine Appearance CLEAR (CLEAR) Urine pH 7.5 (4.5-7.5) Urine Specific [place] 1.013 (1.000-1.030) Urine Protein NEG (NEG) Urine Glucose (UA) NEG (NEG) Urine Ketones NEG (NEG) Urine Occult Blood NEG (NEG) Urine Nitrite NEG (NEG) Urine Bilirubin NEG (NEG) Urine Urobilinogen NEG (NEG) Urine Leukocyte Esterase NEG (NEG) Red Blood Count 4.66 M/uL (4.2-5.4) Mean Corpuscular Volume 86.7 fL (80-100) Mean Corpuscular Hemoglobin 28.1 pg (25-34) Mean Corpuscular Hemoglobin Concent 32.4 g/dl (32-36) RDW Standard Deviation 48.2 fL (36.4-46.3) RDW Coefficient of Variation 15.5 % (11.5-14.5) Mean Platelet Volume 9.9 fL (7.4-10.4) Prothrombin Time 13.1 SECONDS (9.0-12.0) Prothromb Time International Ratio 1.2 (0.9-1.1) Anion Gap 10.0 mmol/L (3-11) Est Creatinine Clear Calc Drug Dose 23.0 ml/min Estimated GFR () 32.0 Estimated GFR (Non- 27.6 BUN/Creatinine Ratio 25.1 (10-20) Calcium Level 9.3 mg/dl (8.5-10.1) Total Bilirubin 1.6 mg/dl (0.2-1) Aspartate Amino Transf (AST/SGOT) 135 U/L (15-37) Alanine Aminotransferase (ALT/SGPT) 190 U/L (12-78) Alkaline Phosphatase 109 U/L (45-117) Total Protein 5.7 gm/dl (6.4-8.2) Albumin 3.1 gm/dl (3.4-5.0) Globulin 2.6 gm/dl (2.5-4.0) Albumin/Globulin Ratio 1.2 (0.9-2) Activated Partial Thromboplast Time 54.8 SECONDS (21.0-31.0) Partial Thromboplastin Ratio 2.1 Imaging A carotid duplex completed in January 2016 was unremarkable Impression This is an 81-year-old female with a history of bilateral occipital lobe infarcts and residual impairment of vision that I suspect is rather significant. She probably has bilateral visual field defects as a result of these infarcts. She may be experiencing some progressive worsening in her visual field, however, based on her reported symptoms recently. I am unable to determine what could be worse with simple bedside testing. The language barrier also makes this assessment quite difficult. The recently completed CT of the head reveals normal evolutionary change of the previously identified bilateral occipital lobe infarcts. However, there is a small area of serpiginous enhancement adjacent to the right occipital lobe infarct at the right occipital temporal lobe junction. This enhancement may be related to the previous contrast exposure for evaluation of her thoracic aorta thrombus/plaque. On the other hand, cortical laminar necrosis related to her previous infarct is also possible and cannot be excluded at this time. I am unable to determine if this possible new abnormality depicted on her CT of the head is responsible for her reported change in vision. Plan I agree with obtaining a repeat CT of the head in 6 hours as recommended by the interpreting radiologist. Perhaps this repeat study will help in sorting out the chronicity of this finding. She is unable to have an MRI. If the abnormality appears stable then I think it would be reasonable to consider anticoagulation for what appears to be a thoracic aorta thrombus. This patient will need an up-to-date visual field assessment with Dr. Green as an outpatient as well. I have no further immediate recommendations for this patient.
[2016-12-17 14:35] LABS: BUN/CREATININE RATIO 24.4 (10-20); CALCIUM 9.6 mg/dl (8.5-10.1); CREATININE 1.8 mg/dl (0.60-1.20); POTASSIUM 3.8 mmol/L (3.5-5.1)
--- NOTE | 2016-12-17 15:51 | DIAGNOSTIC IMAGING REPORT ---
CHEST 2 VIEWS ROUTINE CLINICAL HISTORY: 81 years-old Female presenting with CHF. TECHNIQUE: PA and lateral views of the chest were obtained. COMPARISON: 12/15/2016. FINDINGS: Left-sided implanted cardiac defibrillator with leads to the right atrium, right ventricular apex, and coronary sinus. Numerous overlying external leads degrade image quality. Persistently enlarged cardiac silhouette. Hyperinflation. No focal infiltrate. No large effusion or pneumothorax. Osseous structures demonstrate scoliotic curvature of the lumbar spine with degenerative change. Upper abdomen normal. IMPRESSION: 1. Cardiomegaly. No bettina pulmonary edema. 2. Hyperinflation. Electronically signed by: Kartik Lopez M.D. 12/17/2016 3:49 PM Dictated Date/Time: 12/17/2016 3:48 PM
--- NOTE | 2016-12-17 15:59 | DIAGNOSTIC IMAGING REPORT ---
HEAD CT NONCONTRAST CT DOSE: 537.48 mGy.cm HISTORY: Abnormal head CT. Vision changes. repeat CT from morning TECHNIQUE: Multiaxial CT images of the head were performed without the use of intravenous contrast. Automated exposure control was utilized for this study. A dose lowering technique was utilized adhering to the principles of ALARA. Comparison: Head CT 12/17/2016. Findings: The paranasal sinuses and mastoid air cells are clear. The calvarium and skull base are intact. Old bilateral occipital lobe infarcts are again noted. Small infarcts within the bilateral high convexities. Mild atrophic changes are again noted. There is no mass or midline shift. Serpiginous areas of increased density within the right posterior temporal lobe cortex are not significantly changed. Impression: 1. Overall, no significant change compared to the prior study. 2. Old infarcts are again noted most pronounced within the occipital lobes. 3. Serpiginous areas of increased density along the cortex of the right occipital/temporal junction remains unchanged. This favors retained/residual intravenous contrast due to the abnormal perfusion from the areas of subacute to chronic infarct. This could also represent cortical laminar necrosis. Trace subarachnoid hemorrhage is considered less likely given the stability. However, 04/02/[address] follow-up is recommended for confirmation. Electronically signed by: Bear Alvarenga M.D. 12/17/2016 3:57 PM Dictated Date/Time: 12/17/2016 3:51 PM
[2016-12-17 20:09] VITALS: BP 107/74; PULSE 120; TEMP 36.4; O2SAT 98
--- NOTE | 2016-12-17 20:16 | PROGRESS NOTE ---
DATE: 12/17/2016 HISTORY OF PRESENT ILLNESS: The patient was seen by me today in her telemetry unit room. History from her is limited secondary to her inability to speak Bengali. I do know the patient from the office setting. She is able to answer questions whether she has pain or shortness of breath with a yes or no answer. She denies any chest pain to me. She denies any shortness of breath. She is currently not wearing any oxygen. She does state that she is upset. She said to me "I am sick." So I spoke to the patient's granddaughter Jonna on the phone. Jonna felt that her grandmother was feeling better today compared to the time of admission. It was felt by the granddaughter that her grandmother's peripheral edema has improved since admission. Nursing notes were reviewed and no reports of any acute issues over the past 24 hours. Reported that her dyspnea had improved since admission. CURRENT MEDICATIONS: Metoprolol succinate ER 75 mg b.i.d., clopidogrel 75 mg daily, spironolactone 100 mg daily, furosemide 80 mg IV b.i.d., simvastatin 20 mg daily. Earlier today, she received 20 mEq of oral potassium. She had been on intravenous heparin. This has since been discontinued. Intake and output today reported to be 123/1450. Today's weight 56.5 kg. Weight on December 15 61.4 kg. PHYSICAL EXAMINATION: VITAL SIGNS: Today with oral temperature of 36.4, pulse 92, blood pressure 99/70, pulse oximetry on room air 97%. GENERAL APPEARANCE: Shows her to be sitting at her bedside. No distress. NECK: No jugular venous distention noted sitting upright. LUNGS: Normal respiratory effort. Clear. No rales or wheezes. HEART: Regular rate and rhythm. S1, S2 normal. No S3 or S4. 1/6 systolic murmur left lower sternal border. No diastolic murmur or rub. ABDOMEN: Soft. Nontender. No palpable masses or organomegaly. No bruits. EXTREMITIES: 1+ pedal and pretibial edema bilaterally. NEUROLOGIC: The patient is awake and alert. She moves all extremities well. CT angiography performed on December 15 with report of "large low density filling defect" originating at the base of the subclavian artery/distal aortic arch and extending along the distal arch descending thoracic aorta posteriorly. Appearance of a noncalcified plaque. Not present on prior study of 2009. "This does not appear to expand beyond the wall and therefore favors noncalcified thrombus." However, an old injury or hematoma/old dissection could also have a similar appearance. The filling defect results in a 30-40% narrowing of the distal aortic arch. Echocardiogram performed on December 16 with LV ejection fraction 15-20%. Severe left ventricular dilatation. Akinesis of the inferior wall, mid and distal septum, mid anteroseptum, basal lateral, and basal inferolateral segments. Otherwise, global hypokinesis. Moderately dilated right ventricle with severe artery systolic dysfunction. Severe mitral regurgitation. Estimated right ventricular systolic pressure of 40 mmHg. LABS TODAY: WBC 4.88, hemoglobin 13.1, hematocrit 40.4, platelet count 175. Metabolic profile at 3:18 a.m. revealed potassium 3.3, BUN 43, creatinine 1.70, random glucose 85. AST 135. ALT 190. Repeat potassium at 1:52 p.m. today 3.8. BUN 44 and creatinine 1.80. Because of complaint of visual changes, the patient underwent CT scanning. This was of her head. Old infarcts noted in occipital lobes. There was also a report of increased density along the cortex of the right occipital/uatsdin junction. It was felt that this could represent retained/residual intravenous contrast due to prior head CT scan performed this morning. It was felt that "trace subarachnoid hemorrhage is considered less likely, given the stability." It was recommended she have a 12-24-hour followup CT scan performed. ASSESSMENT: 1. Severe ischemic cardiomyopathy. Severe left ventricular systolic dysfunction. Severe mitral regurgitation. The patient's dyspnea has improved since admission. She has had a good diuresis. Her weight has decreased significantly. Peripheral edema has improved. Normal oxygen saturation on room air. No evidence of pulmonary vascular congestion on lung exam today. 2. Asymptomatic borderline low blood pressure. 3. No anginal type complaints. Troponin I is minimally increased on this admission. Suspect secondary to demand myocardial ischemia. 4. Nonsustained ventricular tachycardia on monitor. No sustained ventricular arrhythmias. She does have an ICD in place. 5. Chronic kidney disease. Renal function relatively stable today. Her creatinine has certainly improved since admission when it was 2.10. 6. Density in distal aortic arch and descending aorta. This was reported on CT scan. Probable plaque. Although this was not seen in 2009, certainly in 7 years, she could develop a plaque in her aorta. 7. Report of visual changes. No definite acute abnormality on head CT scan. However, it has been recommended by radiologist that she undergo a repeat head CT scan in 12-24 hours. This is after the head CT scan performed at 3:51 p.m. today. 8. THE PATIENT HAS ALLERGY TO NERIS INHIBITORS. Angiotensin receptor gabriella contraindicated because of renal insufficiency. RECOMMENDATIONS: 1. Continue metoprolol succinate, clopidogrel, spironolactone, and intravenous furosemide. 2. At the time of discharge, would increase her oral furosemide dose. At the time of admission, she was on 40 mg daily. Would at least have her on an oral dose of 80 mg daily. 3. Agree with discontinuation of intravenous heparin. This is based upon the results of the head CT scan. 4. The patient's case was discussed by me with the granddaughter, the attending physician Dr. Kishan Rosen, and the resident.
[2016-12-17 20:26] LABS: ALB/GLOB RATIO 1.2 (0.9-2); BUN/CREATININE RATIO 21.1 (10-20); CALCIUM 9.6 mg/dl (8.5-10.1); POTASSIUM 4.6 mmol/L (3.5-5.1)
[2016-12-17] MEDS: SIMVASTATIN 20 MG TAB PO SCH (20:50)
[2016-12-17 20:51] VITALS: BP 86/63; TEMP 36.2
[2016-12-17 23:43] VITALS: BP 92/66; PULSE 110; TEMP 36.7; O2SAT 94
[2016-12-18 03:40] VITALS: BP 97/65; PULSE 94; TEMP 36.5; O2SAT 94
[2016-12-18 06:14] LABS: HEMATOCRIT 47.8 % (37-47); MEAN CELL VOLUME 88.2 fL (80-100); MEAN CORPUSCULAR HEMOGLOBIN 27.3 pg (25-34); MEAN PLATELET VOLUME 10.3 fL (7.4-10.4); PLATELET COUNT 211 K/uL (130-400); RED BLOOD COUNT 5.42 M/uL (4.2-5.4); WHITE BLOOD COUNT 6.47 K/uL (4.8-10.8)
[2016-12-18 07:06] LABS: ALB/GLOB RATIO 1.2 (0.9-2); BUN/CREATININE RATIO 21.6 (10-20); CREATININE 1.9 mg/dl (0.60-1.20); POTASSIUM 3.9 mmol/L (3.5-5.1)
[2016-12-18 07:28] VITALS: BP 90/54; PULSE 74; TEMP 36.7; O2SAT 96
[2016-12-18] MEDS: CLOPIDOGREL BISULFATE 75 MG TAB PO SCH (08:21)
[2016-12-18] MEDS: FUROSEMIDE INJ 80 MG in SYRINGE 0 ML IV SCH (08:21)
[2016-12-18] MEDS: CYANOCOBALAMIN 500 MCG TAB (VIT B-12) PO SCH (08:22)
[2016-12-18] MEDS: METOPROLOL SUCC 25MG EXT REL TAB PO SCH (08:22)
[2016-12-18] MEDS: SPIRONOLACTONE 100 MG TAB PO SCH (08:23)
[2016-12-18] MEDS: CHOLECALCIFEROL 1000 INTER.UNIT TAB PO SCH (08:23)
[2016-12-18 11:35] VITALS: BP 92/58; PULSE 112; TEMP 37; O2SAT 98
--- NOTE | 2016-12-18 14:20 | PROGRESS NOTE ---
DATE: 12/18/2016 SUBJECTIVE: The patient was seen by me in our telemetry unit room. History obtained from patient, her granddaughter by son. The patient is feeling well today. No orthopnea or PND overnight. No shortness of breath today. No lightheadedness. No chest discomfort. No abdominal discomfort. No neurologic complaints today. Her peripheral edema has markedly decreased since admission. MEDICATIONS: This morning were metoprolol succinate ER 75 mg b.i.d., clopidogrel 75 mg daily, spironolactone 100 mg daily, vitamin D 2000 units daily, vitamin B12 1000 mcg daily, simvastatin 20 mg daily, furosemide 80 mg IV b.i.d. Last dose of furosemide this morning. ALLERGIES AND ADVERSE DRUG REACTIONS: NERIS INHIBITORS. PHYSICAL EXAMINATION: VITAL SIGNS: Intake and output yesterday 243/1450. Exam late this morning shows oral temperature 37.0, blood pressure 92/58 to, pulse 112, pulse rate earlier today was 74. GENERAL APPEARANCE: She is lying almost flat in bed. No distress. NECK: No jugular venous distention. LUNGS: Normal respiratory effort. Clear. No rales or wheezes. HEART: Increased rate. Regular rhythm. 2/6 holosystolic murmur left lower sternal border and apex. No diastolic murmur or rub. ABDOMEN: Soft. Nontender. No palpable masses or organomegaly. EXTREMITIES: Trace pretibial edema. Review of monitor shows sinus rhythm, sinus tachycardia, premature ventricular beats, occasional ventricular couplets, and rare episodes of nonsustained ventricular tachycardia. LABORATORY DATA: Today WBC 6.47, hemoglobin 14.8, hematocrit 47.8, platelet count 211. Metabolic profile with sodium 138, potassium 3.9, chloride 100, carbon dioxide 26, BUN 41, creatinine 1.90, random glucose 99. AST 151. ALT 221. ASSESSMENT: 1. Admission for complaints of increasing dyspnea and increasing peripheral edema. Both of these have improved with IV diuresis. She has no dyspnea today. She is lying flat in bed at the time of my exam. Room air oxygen saturation 98%. Lung exam is normal at the time of my exam late this morning. 2. Marked improvement in peripheral edema. Minimal edema on exam today. 3. Chronic kidney disease. BUN and creatinine are stable from yesterday. Creatinine actually slightly decreased. 4. Severe ischemic cardiomyopathy. No anginal symptoms. 5. Nonsustained ventricular tachycardia, asymptomatic. No discharges of her defibrillator. Potassium level today normal. 6. Asymptomatic borderline low blood pressure. 7. CT angiography on the day of admission revealed distal aortic arch and descending aortic narrowing of 30% to 40%. It was felt that this could represent a soft plaque. It was felt that in all dissection with associated thrombus and/or hematoma could not be excluded. The patient has no vascular complaints. Suspect the abnormality is secondary to a plaque. Even if it represented dissection, she is not a candidate for invasive treatment for this. Her severe left ventricular systolic dysfunction would place her very high surgical risk. The patient is currently asymptomatic from a vascular standpoint. 8. Elevated liver function test. Suspect passive congestion of the liver. 9. Her chronic kidney disease and elevated liver function test would contraindicate the use of warfarin anticoagulation or use of a novel oral anticoagulant. RECOMMENDATIONS: 1. Check serum magnesium level today just to make sure hypomagnesemia is not contributing to her ventricular arrhythmias. 2. Increase metoprolol succinate ER to 100 mg b.i.d. 3. Discontinue intravenous furosemide. Switch to oral furosemide 40 mg daily. 4. Continue spironolactone and clopidogrel. 5. The patient greatly desires to go home. I think she is stable from a cardiac standpoint at this time. If she remains stable this afternoon, we would consider discharge home later this afternoon or early this evening. CÉSAR
--- NOTE | 2016-12-18 15:30 | Discharge Instructions ---
Discharge Instructions Date of Service Dec 18, 2016. Admission Reason for Admission: Acute On Chronic Systolic Congestive Heart Failure Discharge Discharge Diagnosis / Problem: Acute on chronic systolic CHF Discharge Goals Goal(s): Decrease discomfort, Improve function Activity Recommendations Activity Limitations: resume your previous activity . Instructions / Follow-Up Instructions / Follow-Up Follow up with your primary care doctor as soon as possible for recheck of some of the results of your laboratory testing and CT scans of your head, chest, and abdomen. Follow up with your hand printed circuit board assembler as soon as possible for ongoing management of your heart problems. Follow up with Dr. Green as soon as possible for an updated eye exam. Call your Primary Care doctor if any of the following symptoms or problems start or get worse: * Shortness of breath or difficulty breathing * Wake up at night short of breath * Chest pain * Cough * Swelling of your hands, feet, or legs * More fatigued or tired with your normal activity * Palpitations - sudden fast heart beats If you cannot reach your primary care doctor immediately, go to the nearest emergency department! WEIGHT * Weigh yourself every morning after using the bathroom. * Use the same scale. * Wear the same amount of clothing. * Write your weight down on a chart. * Call your Primary Care doctor if you gain more than 2-3 pounds in 1-2 days. MEDICATIONS * Use this discharge instruction sheet for medication instructions. * Take your medications at the time your doctor ordered. * Do not skip a dose of your medicines. * If you miss a dose of medicine, take it as soon as possible, but DO NOT DOUBLE A DOSE. * Read your medicine information when you get home. * Know all of the side effects of your medicine. If in doubt, ask your pharmacist * Call your Primary Care doctor's office if you have any side effects. * Be sure all of your doctors know what medicine and herbs you take (including cold, flu, and herbal medicine). Take the following with you to your follow-up doctor appointments: * Weight Chart * Medication List * List of questions Do not drink excessive alcohol, beer or wine. Current Hospital Diet Patient's current hospital diet: AHA Diet (Heart Healthy), Low Sodium Diet (2gm Na) Discharge Diet Recommended Diet: AHA Diet (Heart Healthy), Low Sodium Diet (2gm Na) Pending Studies Studies pending at discharge: no Medical Emergencies . Who to Call and When: Call 911 or go to the Emergency Room if: * If at any time you feel your situation is an emergency * You have tightness or pain in your chest that does not go away with rest or Nitroglycerin * You are very short of breath even with rest . Non-Emergent Contact Non-Emergency issues call your: Primary Care Provider, Search Engine Optimization Specialist, Hand Clipper . . "Provider Documentation" section prepared by Jim Mancia. . Children'S Author Recommendations Children'S Author Recommendations: Follow up with your primary care doctor, hand printed circuit board assembler, and your eye doctor for further evaluations. VTE Core Measure Inpt VTE Proph given/why not?: Other Anticoagulation
--- NOTE | 2016-12-18 15:42 | Discharge Summary ---
Discharge Summary Date of Service Dec 18, 2016. (Josh. Mancia M.D.) Discharge Summary Admission Date: Dec 15, 2016 at 19:55 Discharge Date: Dec 18, 2016 Discharge Disposition: Home Principal Diagnosis: Acute on chronic systolic CHF Problems/Secondary Diagnoses: - Acute kidney injury secondary to systolic CHF - Aortic arch noncalcified atherosclerotic plaque - Ventricular tachycardia - Elevated liver function enzymes - Ovarian cystic lesion Immunizations: Have You Had Influenza Vaccine: No Influenza Vaccine Date: Jan 30, 2007 History of Tetanus Vaccine?: Unknown History of Pneumococcal: Yes Pneumococcal Date: September 06, 2007 History of Hepatitis B Vaccine: No Procedures: CXR One-view 16Aug: IMPRESSION: 1. Cardiomegaly with mild central pulmonary vascular congestion 2. No evidence of focal pulmonary consolidation 3. No evidence of free intraperitoneal air CHEST CTA for AORTIC DISSECTION 16Aug COMPARISON STUDY: Chest 12/15/2016. Chest CT 12/22/2015. Chest CT 07/11/2009. IMPRESSION: 1. There is a large low density filling defect seen at the base of the subclavian artery/distal aortic arch and extending along the distal arch/ descending thoracic aorta posteriorly. This measures 2 cm in thickness and 8.6 cm in length. The appearance favors noncalcified atherosclerotic plaque. An old intramural hematoma/old dissection could also have a similar appearance but is considered less likely. This is unlikely to represent a vascular tumor as there is no evidence for extension beyond the aortic wall. However, consider short- term chest CT follow-up to ensure stability or if the patient's condition continues to deteriorate. Of note, this was not present on the 2009 examination. This results in approximately 30-40% narrowing of the distal aortic arch. 2. Heterogeneous contrast opacification within the anterior aspect of the distal aortic arch which favors mixing of blood and contrast from the possibility of turbulent flow due to the adjacent large amount of atherosclerotic plaque. 3. Cardiomegaly, unchanged. ANGIO ABD/PELVIS WITH CONTRAST 16Aug -- IMPRESSION: 1. Abnormal thoracic aorta which has been described previous study. 2. Atherosclerotic change of the abdominal and pelvic arterial vasculature with no evidence for aneurysm or dissection. 3. 3 cm left renal cyst. 4. 3.2 cm left ovarian cystic lesion considered abnormal for age. Pelvic ultrasonography as follow-up is suggested. Moderate amount free fluid within the pelvic cul-de-sac. 5. Degenerative change thoracolumbar spine as well as bony pelvis. ED bedside u/s 16Aug Bedside US: The patient has an EF of 15%, which is consistent with her baseline. IVC is plethoric with minimal variability. However no significant B- lines are seen on lung ultrasound. Echocardiogram - Study Date: 12/16/2016 09:40 AM 1. Severely dilated left ventricle with severely reduced systolic function. EF 15-20%. Akinesis of the inferior wall, mid to distal septum, mid anteroseptum, basal lateral, and basal inferolateral wall segments. Otherwise, global hypokinesis. No left ventricular hypertrophy. 2. Moderately dilated right ventricle with severely reduced systolic function. 3. Mild biatrial dilation. 4. Mitral valve leaflets do not coapt during systole; restricted posterior leaflet. Severe mitral regurgitation. 5. Mildly elevated right ventricular systolic pressure; estimated RVSP 40 mmHg. 6. No significant change from prior study on 03/02/2016. Repeat CT head 18Aug Impression: 1. Overall, no significant change compared to the prior study. 2. Old infarcts are again noted most pronounced within the occipital lobes. 3. Serpiginous areas of increased density along the cortex of the right occipital/temporal junction remains unchanged. This favors retained/residual intravenous contrast due to the abnormal perfusion from the areas of subacute to chronic infarct. This could also represent cortical laminar necrosis. Trace subarachnoid hemorrhage is considered less likely given the stability. However, 04/02/[address] follow-up is recommended for confirmation. Consultations: Cards consult, latest Aug RECOMMENDATIONS: 1. Check serum magnesium level today just to make sure hypomagnesemia is not contributing to her ventricular arrhythmias. 2. Increase metoprolol succinate ER ____ 100 mg b.i.d. 3. Discontinue intravenous furosemide. Switch to oral furosemide 40 mg daily. 4. Continue spironolactone and clopidogrel. 5. The patient greatly desires to go home. I think she is stable from a cardiac standpoint at this time. If she remains stable this afternoon, we would consider discharge home later this afternoon or early this evening. Neuro consult, latest 18Aug - I agree with obtaining a repeat CT of the head in 6 hours as recommended by the interpreting radiologist. - Perhaps this repeat study will help in sorting out the chronicity of this finding. - She is unable to have an MRI. 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 - This patient will need an up-to-date visual field assessment with Dr. Geren as an outpatient as well. - I have no further immediate recommendations for this patient. (Josh. Mancia M.D.) Medication Reconciliation New Medications: Furosemide (Lasix) 80 Mg Tab 1 TAB PO DAILY for 30 Days, #30 TAB 0 Refills Metoprolol Succ (Toprol Xl) (Toprol-Xl ) 100 Mg Tabcr 1 TAB PO BID for 30 Days, #60 TAB 0 Refills Continued Medications: Cholecalciferol (Vitamin D3) 2,000 Unit Cap 1 CAP PO DAILY for 90 Days, #90 CAP 3 Refills Clopidogrel (Plavix) 75 Mg Tab 75 MG PO DAILY, TAB Cyanocobalamin (Vitamin B12) 1,000 Mcg Tab 1 TAB PO QAM Simvastatin (Zocor) 20 Mg Tab 20 MG PO QPM, 0 Refills Spironolactone (Spironolactone) 100 Mg Tab 100 MG PO QAM, #90 Discontinued Medications: Furosemide (Lasix) 40 Mg Tab 40 MG PO DAILY, 0 Refills Metoprolol Succ (Toprol Xl) (Toprol-Xl) 50 Mg Tabcr 1.5 TAB PO QAM, #30 0 Refills Discharge Exam On day of d/, pt was found sitting on side of [place], awake, alert, quite conversational with her granddaughter in full sentences on the phone during translation, and in NAD. She stated she wished to go home. She denied any overnight issues. Says she feels hungry but otherwise no CP, SOB, headache, changes in vision (says that it feels like her normal vision at home), difficulty with speaking or extremity movement, or other acute concerns. Review of Systems: Constitutional: No fever Eyes: No worsening of vision Respiratory: No cough, No sputum, No shortness of breath Cardiovascular: No chest pain Abdomen: No nausea, No vomiting Physical Exam: General Appearance: WD/WN Respiratory/Chest: lungs clear Cardiovascular: + irregularly irregular Abdomen / GI: normal bowel sounds, non tender, soft Extremities: no calf tenderness, + pedal edema (1+ bilaterally) Neurologic/Psychiatric: alert, normal mood/affect (Josh. Mancia M.D.) Hospital Course From H&P on admission: 81yo female abd pain x 6 days. Mostly speaks Panamanian, daughter translates "stuck in throat". "pinching in chest". Decreased appetite. N/V earlier in week. Leg swelling. Patient was reporting severe burning chest and abdominal pain that radiated to her back 2 weeks prior she had increasing stress at home. She normally follows with Dr Patterson. Discharge summary: 1) Chest discomfort / acute on chronic systolic CHF - TnI x3 neg. No particular recurrence as inpt. Cardiology on consult. - See full echo 17Aug results. Abbreviated: Severely dilated left ventricle. EF 15-20%. Multi-akinesis. Mitral valve leaflets do not coapt during systole. - Increased lasix dose to 80 IV BID here. Held home dose. - Once closer to euvolemic state, stopped IV lasix. Plan for start Lasix 40 mg PO daily as outpt. - On Toprol XL 75 BID, cards rec'd increase to 100 mg BID. Continue spironolactone 100 daily. - Magnesium level 2.4 on 17Aug. Cards consult, latest 19Aug RECOMMENDATIONS: 1. Check serum magnesium level today just to make sure hypomagnesemia is not contributing to her ventricular arrhythmias. 2. Increase metoprolol succinate ER ____ 100 mg b.i.d. 3. Discontinue intravenous furosemide. Switch to oral furosemide 40 mg daily. ---- Clarified on phone on 19Aug: Dr. Patterson wants 80 mg daily (consistent with prior day's note). 4. Continue spironolactone and clopidogrel. 5. The patient greatly desires to go home. I think she is stable from a cardiac standpoint at this time. If she remains stable this afternoon, we would consider discharge home later this afternoon or early this evening. 2) LOLA secondary to systolic CHF - Admit Cr 2.1. Trended during admission, at 1.9 at time of d/c. Will need close PCM f/u to check for resolution. 3) Hx CVA, ? new neuro visual deficits - Differing accounts. Some reports of pt having some baseline visual difficulties, previously evaluated by her eye doctor. Other account of acutely worse while inpt, prompting CT head. - CT head on 18Aug x 2 noted "serpiginous area of increased density" of concern. Neuro consult noted question of chronicity. Rec'd repeat head CT which was considered less likely for trace SAH. Rec'd 24hour f/u head CT. Initial neuro rec'd included if abnormality stable can consider anticoagulation. - No changes in mental status following these scans. Re-discussed eye sx with pt (via granddaughter) on morning of d/c, noted she has no change in her vision and that she's not acutely concerned about it the morning of d/c. Thus did not obtain third head CT (and related radiation dose). [ ] Rec'd outpt updated visual field assessment with Dr. Green. - On plavix and zocor as outpt, continued as inpt, back on same as outpt. Neuro consult, latest 18Aug - I agree with obtaining a repeat CT of the head in 6 hours as recommended by the interpreting radiologist. - Perhaps this repeat study will help in sorting out the chronicity of this finding. - She is unable to have an MRI. 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 - This patient will need an up-to-date visual field assessment with Dr. Green as an outpatient as well. - I have no further immediate recommendations for this patient. 4) Findings on chest CT re: aortic arch - Question of thrombus vs arterial wall issue. After multiple discussions with specialists, will not add any new anticoagulation for this. Rec'd PCM f/u for awareness of same. - Heparin placed on hold as inpt. - Still on plavix 5) Ventricular tachycardia, occasional episodes while inpt - On Toprol XL 100 BID (increase from 75 mg BID). 6) Elevated LFTs - Likely secondary to hepatic congestion due to CHF - Trending here was mostly stable. Rec recheck on PCM f/u. 7) Ovarian cyst (incidental finding on CT chest/abdomen) - Radiology noted "considered abnormal for age" [ ] Recommend refer for pelvic ultrasound once discharged for further evaluation Total Time Spent: Greater than 30 minutes This includes examination of the patient, discharge planning, medication reconciliation, and communication with other providers. (Josh. Mancia M.D.) Resident Physician Supervision Note: I was present with Dr. Mancia during the history and exam. I discussed the case with the resident and agree with the findings and plan as documented in the note. Any exceptions or clarifications are listed here: I also discussed the case with Dr. Patterson. The patient was admitted with CHF - she responded well to IV diuresis. Significant changes medical regimen include increasing her Lasix dose to 80 mg every morning and increasing her Toprol-XL to 100 mg by mouth twice a day. She will have follow-up through the heart failure clinic in the next 1-2 weeks. Documented By: Mario Rosen Total Time Spent: Greater than 30 minutes Time spent in discharge was 50 minutes. This included speaking with the patient with the help of a telephone coal sample tester (family member), discussing the case with Dr. Patterson, and preparing discharge materials and the patient's new prescriptions. (Mario Rosen.,D.O.) Discharge Instructions Please refer to the electronic Patient Visit Report (Discharge Instructions) for additional information. (Josh. Mancia M.D.) Follow-Up - Primary care - Cardiology - Eye doctor (Josh. Mancia M.D.) Additional Copies To Clive Zavala III, CRNP; Getachew Patterson M.D.
[2016-12-18 16:10] VITALS: BP 94/69; PULSE 97; TEMP 36.3; O2SAT 99
[2016-12-18] MEDS ORDERED: TPRSR/100 PO (16:52)
[2016-12-18] MEDS ORDERED: FURO80TA63 PO (16:52)
[2016-12-18 16:53] VITALS: BP 94/69; PULSE 97; TEMP 36.3; O2SAT 99
[2016-12-18] MEDS ORDERED: METO1TAB69 PO (16:57)
[2016-12-18] MEDS ORDERED: METOPROLOL SUCC 50MG EXT REL TAB PO SCH (21:00)
== END 2016-12-18 18:17 | disposition home or self-care (01) | DRG 291 ==
LOC: C.EDB 14:41 → C.2T 19:55 → ENRESERV 20:32
PROVIDERS: ADMIT Internal Medicine; ATTEND Internal Medicine
DX: I13.0 Hypertensive heart and chronic kidney disease with heart failure and stage 1 through stage 4 chronic kidney disease, or unspecified chronic kidney disease (principal); I50.23 Acute on chronic systolic (congestive) heart failure; N17.9 Acute kidney failure, unspecified; I47.2 Ventricular tachycardia; I24.8 Other forms of acute ischemic heart disease; I74.11 Embolism and thrombosis of thoracic aorta; I70.0 Atherosclerosis of aorta; I25.5 Ischemic cardiomyopathy; I25.2 Old myocardial infarction; N18.3 Chronic kidney disease, stage 3 (moderate); Z95.810 Presence of automatic (implantable) cardiac defibrillator; I69.898 Other sequelae of other cerebrovascular disease; E78.5 Hyperlipidemia, unspecified; I34.0 Nonrheumatic mitral (valve) insufficiency; I25.10 Atherosclerotic heart disease of native coronary artery without angina pectoris